=== PATIENT | female | born 1995 | race Caucasian/White ===

== ENCOUNTER 2019-05-07 08:29 | Emergency (ER) | payer OTHER ==
[~2019-05-07] VITALS: Ht 165.1 cm; Wt 65.8 kg
--- OUTSIDE RECORDS SUMMARY | ~2019-05-07 | XMS | Encounter Summary ---
Demographics + + + | Address | [address] | | | [place] [address] | + + + | Home Phone | | + + + | Preferred Language | Unknown | + + + | Marital Status | Unknown | + + + | Latter-Day Affiliation | Unknown | + + + | Race | Unknown | + + + | Ethnic Group | Unknown | + + + Author + + + | Author | [facility] | + + + | Organization | 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) | + + + Encounter Details +--------+ + + + + | Date | Type | Department | Care Team | Description | +--------+ + + + + | 06/09/ | Telephone | Pediatric | Sarwat Comer MD | New patient | | 2013 | | Neurology at | [address] | consultation (853.00 | | | | [address] | [place], [place] | (ICD-9-CM) - Other | | | | [facility] | [address] | and unspecified | | | | [address] | [phone] | intracranial | | | | Kylee Jamin Mailcode: | | hemorrhage following | | | | [facility] [address] | | injury, without | | | | [place], [place] | | mention of open | | | | [address] | | intracranial wound, | | | | [phone] | | unspecified state of | | | | | | consciousness;315.9 | | | | | | (ICD-9-CM) - | | | | | | Unspecified delay in | | | | | | development(315.9)) | +--------+ + + + + Social History + +-------+ +--------+------+ | Tobacco Use | Types | Packs/Day | Years | Date | | | | | Used | | + +-------+ +--------+------+ | Never Assessed | | | | | + +-------+ +--------+------+ + + + | Sex Assigned at | Date Recorded | | | | + + + | Not on file | | + + + + + + + | Job Start Date | Occupation | Industry | + + + + | Not on file | Not on file | Not on file | + + + + + + + + | Travel History | Travel Start | Travel End | + + + + + + | No recent travel history available. | + + documented as of this encounter Plan of Treatment Not on filedocumented as of this encounter Visit Diagnoses Not on filedocumented in this encounter"
--- OUTSIDE RECORDS SUMMARY | ~2019-05-07 | XMS | Encounter Summary ---
Demographics + + + | Address | [address] | | | [place] [address] | + + + | Home Phone | | + + + | Preferred Language | Unknown | + + + | Marital Status | Single | + + + | Protestant Affiliation | Unknown | + + + | Race | Unknown | + + + | Ethnic Group | Unknown | + + + Author + + + | Author | [facility] | | | and [place] | + + + | Organization | [facility] | | | and [place] | [...] Team Providers + +------+ + | Care Windows Desktop Support Name | Role | Phone | + +------+ + PCP | Unavailable | + +------+ + Encounter Details +--------+ + + + + | Date | Type | Department | Care Team | Description | +--------+ + + + + | 09/20/ | Hospital | [facility] | Brendan Olmstead, | | | 2016 | Encounter | [facility] | DMD [address] | | | | | [address] [facility] | [place] [address] | | | | | [place], [place] | [phone] | | | | | [address] | | | | | | [phone] | | | +--------+ + + + + Social [...] + + documented as of this encounter Progress Notes Conversion Transaction, Provider Unknown - 09/20/2016 4:24 PM PDTFormatting of this note m ight be different from the original. Nurse Progress Note by Lavinia Marcial RN at 09/20/161623 Author: Lavinia Marcial RN Service: (none) Author Type: Registered Nurse Filed: 09/20/16 9328 Date of Service: 09/20/161623 Status: Signed Linotype Worker: Lavinia Marcial RN (Registered Nurse) Discharge instructions given to mom and sister. No complaints of pain or discomfort from abigail espinal. Taught mom and sister how to take care of incisions, gave prescription medications to mother via discharge folder. Helped patient get dressed, changed brief, and Antonella CANT HOOKER help ed wheel patient out to the car. IV removed also. No extra questions left unanswered. Told m other if she had any questions to call Dr. Olmstead. onver camilla Transaction, Provider Unknown - 09/20/2016 1:04 PM PDT Nurse Progress Note by Marycarmen Grigsby RN at 09/20/16 1304 Author: Marycarmen Grigsby RN Service: (none) Author Type: Registered Nurse Filed: 09/20/16 1306 Date of Service: 09/20/16 1304 Status: Signed Linotype Worker: Marycarmen Grigsby RN (Registered Nurse) Pts last name is to be néstor Zhu. 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 Dr. Hagen in pre-op room and aware that HCG urine hasn 't been done @ mom's request. Marycarmen Grigsby RN 09/20/2016 1:06 PM onver camilla Transaction, Provider Unknown - 09/20/2016 12:46 PM PDT Nurse Progress Note by Marycarmen Grigsby RN at 09/20/16 1246 Author: Marycarmen Grigsby RN Service: (none) Author Type: Registered Nurse Filed: 09/20/16 1247 Date of Service: 09/20/16 1246 Status: Signed Linotype Worker: Marycarmen Grigsby RN (Registered Nurse) Pt unable to void in urine cup. Mom declining urine test. Marycarmen Grigsby RN 09/20/2016 12:47 PM docume nted in this encounter Plan of Treatment Not on filedocumented as of this encounter Visit Diagnoses Not on filedocumented in this encounter"
--- OUTSIDE RECORDS SUMMARY | ~2019-05-07 | XMS ---
Demographics + + + | Address | [address] | | | [place] [address] | + + + | Home Phone | | + + + | Preferred Language | Unknown | + + + | Marital Status | Never | + + + | Orthodoxy Affiliation | Unknown | + + + | Race | White | + + + | Ethnic Group | Not or | + + + Author + + + | Author | [facility] | + + + | Organization | [facility] | + + + | Address | [address] | | | [place] [address] | + + + | Phone | | + + + Care Team Providers + + + + | Care Technical Sales Manager Name | Role | Phone | + + + + | Joanne Gallardo PCP | | + + + + Unavailable | Unavailable | + + + + | Keke Simeon | PreferredProvider | | + + + + Allergies and Adverse Reactions + + + + | Name | Reaction | Notes | + + + + | NO KNOWN DRUG ALLERGIES | | | + + + + | No Known Food or | | - [employer]rees[employer] 08/23/2016 | | Environmental Allergies | | | + + + + Plan of Treatment Not available. Medications +--------+ | Active | +--------+ + + + + + + | Name | Start Date | Estimated | SIG | Comments | | | | Completion Date | | | + + + + + + | Loestrin 07/12 | 04/26/2014 | | take 1 pill for | | | (21) 1-20 | | | 21 days | | | mg-mcg oral | | | discard next 7 | | | tablet | | | pill and take | | | | | | another one | | | | | | pill for | | | | | | 21days, discard | | | | | | 7, take one | | | | | | pill for 21 | | | | | | days discard | | | | | | the next 7, t | | + + + + + + | divalproex 125 | 01/30/2015 | | TAKE THREE | | | mg oral | | | CAPSULES BY | | | capsule, | | | MOUTH IN THE | | | sprinkle | | | MORNING AND TWO | | | | | | AT NOON AND | | | | | | TWO AT BEDTIME | | + + + + + + | divalproex 125 | 03/01/2015 | | TAKE THREE | | | mg oral | | | CAPSULES BY | | | capsule, | | | MOUTH IN THE | | | sprinkle | | | MORNING AND TWO | | | | | | AT NOON AND | | | | | | TWO AT BEDTIME | | + + + + + + | divalproex 125 | 03/23/2015 | | TAKE THREE | | | mg oral | | | CAPSULES BY | | | capsule, | | | MOUTH IN THE | | | sprinkle | | | MORNING AND TWO | | | | | | AT NOON AND | | | | | | TWO AT BEDTIME | | + + + + + + | Lotrimin AF 1 % | 10/28/2016 | | apply to | | | topical cream | | | affected | | | | | | area(s) by | | | | | | topical route 3 | | | | | | times a day | | + + + + + + | divalproex 125 | 06/06/2017 | 07/06/2017 | TAKE THREE | | | mg oral | | | CAPSULES BY | | | capsule, | | | MOUTH OR | | | delayed rel | | | SPRINKLE ON | | | sprinkle | | | FOOD IN THE | | | | | | MORNING AND | | | | | | THREE CAPSULES | | | | | | AT 12 PM, AND | | | | | | TWO CAPSULES AT | | | | | | BEDTIME | | + + + + + + +---------+ | | +---------+ + + + + + + | Name | Start Date | Expiration Date | SIG | Comments | + + + + + + | Seasonique 0.15 | 04/26/2014 | 07/24/2014 | take 1 tablet | | | mg-30 mcg | | | by oral route | | | (84)/10 mcg (7) | | | once daily for | | | oral | | | 90 days | | | tablets,dose | | | | | | pack,3 month | | | | | + + + + + + | Perfit size | 04/25/2014 | 05/25/2014 | Use as | | | Medium Adult | | | directed. Disp | | | Pull-ups | | | 8/24hrs | | | | | | (240/mo) ICD-9: | | | | | | 344.00, | | | | | | 853.00, 315.9, | | | | | | 788.30, 787.60 | | + + + + + + | amoxicillin 400 | 07/15/2014 | 07/25/2014 | take 10 | | | mg/5 mL oral | | | milliliters by | | | suspension for | | | oral route 2 | | | reconstitution | | | times a day for | | | | | | 10 days | | + + + + + + | cefprozil 250 | 08/05/2014 | 08/15/2014 | take 10 | | | mg/5 mL oral | | | milliliters by | | | suspension for | | | oral route 2 | | | reconstitution | | | times a day for | | | | | | 10 days | | + + + + + + | divalproex 125 | 08/30/2014 | 12/28/2014 | Take 3 capsules | | | mg oral | | | (375 mg) po in | | | capsule, | | | am, 2 capsules | | | sprinkle | | | (375 mg) po | | | | | | midday, and 2 | | | | | | capsules (250 | | | | | | mg) po qhs. | | + + + + + + | divalproex 125 | 01/24/2015 | 07/23/2015 | TAKE THREE | | | mg oral | | | CAPSULES BY | | | capsule, | | | MOUTH IN THE | | | sprinkle | | | MORNING AND TWO | | | | | | AT NOON AND | | | | | | TWO AT BEDTIME | | | | | | for 30 days | | + + + + + + | Auralgan | 02/14/2015 | 02/21/2015 | fill external | | | antipyrine | | | ear canal with | | | 5.4%, | | | 2-4drops q 1-2 | | | benzocaine1.4 | | | hr prn pain | | + + + + + + | acetaminophen-c | 02/14/2015 | 02/21/2015 | take 1-2 tablet | | | odeine 300-30 | | | by oral route | | | mg oral tablet | | | every 4 to 6 | | | | | | hours for 7 | | | | | | days | | + + + + + + | Intuniv ER 1 mg | 04/11/2015 | 04/12/2015 | take 1 tablet | | | oral tablet | | | by oral route | | | extended | | | daily for 1 day | | | release 24 hr | | | | | + + + + + + | lorazepam 1 mg | 04/21/2015 | 04/28/2015 | take 1 tablet | | | oral tablet | | | (1 mg) by oral | | | | | | route as needed | | | | | | for | | | | | | aggressive | | | | | | behaviors. Not | | | | | | to exceed 3 | | | | | | tablets per | | | | | | day. | | + + + + + + | divalproex 125 | 05/31/2015 | 06/30/2015 | TAKE THREE | | | mg oral | | | CAPSULES BY | | | capsule, | | | MOUTH IN THE | | | sprinkle | | | MORNING AND TWO | | | | | | AT NOON AND | | | | | | TWO AT BEDTIME | | + + + + + + | guanfacine 1 mg | 06/02/2015 | 07/02/2015 | take 1 tablet | | | oral tablet | | | by oral route 2 | | | | | | times a day | | | | | | for 30 days | | + + + + + + | divalproex 125 | 06/06/2015 | 07/06/2015 | take 3 capsule | | | mg oral | | | by oral route | | | capsule, | | | or sprinkle on | | | sprinkle | | | food, in the | | | | | | am, 3 capsules | | | | | | at noon and 2 | | | | | | capsules at | | | | | | bedtime. | | + + + + + + | Risperdal 0.5 | 08/21/2015 | 09/20/2015 | take 1 tablet | | | mg oral tablet | | | by oral route | | | | | | QAM x 7 days | | | | | | then increase | | | | | | to bid. | | + + + + + + | trazodone 50 mg | 08/26/2015 | 09/25/2015 | take 1/2 tablet | | | oral tablet | | | (25 mg) by | | | | | | oral route at | | | | | | Bedtime once | | | | | | per day | | + + + + + + | First Quality | 08/28/2015 | 09/21/2016 | Use as | | | Diapers Size | | | directed. Disp | | | Large | | | 4/24hrs | | | | | | (120/mo) | | | | | | ICD-03/02: | | | | | | 344.00/G82.50, | | | | | | 788.30/32, | | | | | | 853.00/N/A | | + + + + + + | cetirizine 10 | 10/31/2015 | 2016 | chew 1 tablet | | | mg oral | | | (10 mg) by oral | | | tablet,chewable | | | route once | | | | | | daily for 30 | | | | | | days | | + + + + + + | fluticasone 50 | 10/31/2015 | 2016 | inhale 1 spray | | | mcg/actuation | | | by nasal route | | | nasal | | | daily | | | spray,suspensio | | | | | | n | | | | | + + + + + + | trazodone 50 mg | 10/31/2015 | 05/28/2016 | take 1/2 tablet | | | oral tablet | | | (25 mg) by | | | | | | oral route at | | | | | | Bedtime once | | | | | | per day | | + + + + + + | Zyrtec 10 mg | 10/28/2016 | 11/27/2016 | take 1 tablet | | | oral tablet | | | (10 mg) by oral | | | | | | route once | | | | | | daily for 30 | | | | | | days | | + + + + + + | Sudafed 12 Hour | 10/28/2016 | 11/27/2016 | take 1 tablet | | | 120 mg oral | | | (120 mg) by | | | tablet extended | | | oral route | | | release | | | every 12 hours | | | | | | for 30 days | | + + + + + + + + | Discontinued | + + + + + + + + | Name | Start Date | Discontinued | SIG | Comments | | | | Date | | | + + + + + + | guanfacine 2 mg | 07/14/2015 | 08/21/2015 | take 1 tablet | | | oral tablet | | | by oral route 2 | | | | | | times a day | | | | | | for 30 days | | + + + + + + Problem List + +--------+ + | Description | Status | Onset | + +--------+ + | Traumatic Brain Injury | Active | | + +--------+ + | Quadriplegia | Active | | + +--------+ + | Obesity | Active | | + +--------+ + | Developmental Delay | Active | | + +--------+ + | Contraception, Oral | Active | | | Prescription | | | + +--------+ + | Allergic rhinitis | Active | | + +--------+ + | Strabismus | Active | | + +--------+ + | 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 | 04/25/2014 | + +--------+ + | Eustachian tube dysfunction | Active | 02/15/2015 | + +--------+ + | Aggressive behavior | Active | 08/21/2015 | + +--------+ + | Weight loss | Active | 08/21/2015 | + +--------+ + | Sleep disorder, unspecified | Active | 08/21/2015 | + +--------+ + | Wrist pain, acute, right | Active | 08/21/2015 | + +--------+ + Vital Signs +-----+-----+-----+-----+-----+-----+-----+-----+-----+----+-----+-----+-----+-----+ | Ravi | Segun | BP- | BP- | HR( | RR( | Tem | WT | HT | HC | BMI | BSA | BMI | O2 | | e | e | Sys | Adri | bpm | rpm | p | | | | | | | Sat | | | | (mm | (mm | ) | ) | | | | | | | Per | (%) | | | | [Hg | [Hg | | | | | | | | | hoang | | | | | ] | ]) | | | | | | | | | til | | | | | | | | | | | | | | | e | | +-----+-----+-----+-----+-----+-----+-----+-----+-----+----+-----+-----+-----+-----+ | 5/2 | 4:2 | 116 | 64 | 109 | 28 | 99. | 131 | | | | | | 99 | | 3/2 | 4:0 | | mmH | | rpm | 5 F | | | | | | | % | | 017 | 0 | mmH | g | bpm | | | lbs | | | | | | | | | PM | g | | | | | | | | | | | | +-----+-----+-----+-----+-----+-----+-----+-----+-----+----+-----+-----+-----+-----+ | 58 | 2:4 | 104 | 70 | 90 | 22 | 98. | 131 | | | | | | | | /20 | 6:0 | | mmH | bpm | rpm | 5 F | | | | | | | | | 17 | 0 | mmH | g | | | | lbs | | | | | | | | | PM | g | | | | | | | | | | | | +-----+-----+-----+-----+-----+-----+-----+-----+-----+----+-----+-----+-----+-----+ | 4/1 | 2:4 | 108 | 66 | 90 | 30 | 98. | 133 | | | | | | 98 | | 2/2 | 0:0 | | mmH | bpm | rpm | 2 F | | | | | | | % | | 017 | 0 | mmH | g | | | | lbs | | | | | | | | | PM | g | | | | | | | | | | | | +-----+-----+-----+-----+-----+-----+-----+-----+-----+----+-----+-----+-----+-----+ | 3/3 | 9:1 | 106 | 62 | 87 | 20 | 99. | 133 | | | | | | 97 | | /20 | 6:0 | | mmH | bpm | rpm | 1 F | | | | | | | % | | 17 | 0 | mmH | g | | | | lbs | | | | | | | | | AM | g | | | | | | | | | | | | +-----+-----+-----+-----+-----+-----+-----+-----+-----+----+-----+-----+-----+-----+ | 5/1 | 8:4 | 110 | 60 | 91 | 24 | 98. | 134 | 62. | | 24. | 1.6 | 76 | 99 | | 0/2 | 4:0 | | mmH | bpm | rpm | 2 F | | 25 | | 312 | 339 | % | % | | 016 | 0 | mmH | g | | | | lbs | in | | 2 | | | | | | AM | g | | | | | | | | kg/ | m | | | | | | | | | | | | | | m | | | | +-----+-----+-----+-----+-----+-----+-----+-----+-----+----+-----+-----+-----+-----+ | 3/4 | 11: | | | 142 | 24 | 98. | 124 | | | | | | 99 | | /20 | 47: | | | | rpm | 6 F | | | | | | | % | | 16 | 00 | | | bpm | | | lbs | | | | | | | | | AM | | | | | | | | | | | | | +-----+-----+-----+-----+-----+-----+-----+-----+-----+----+-----+-----+-----+-----+ | 2/2 | 11: | 114 | 64 | 58 | 20 | 98 | 136 | 62. | | 24. | 1.6 | 78. | 98 | | 9/2 | 27: | | mmH | bpm | rpm | F | | 25 | | 675 | 46 | 6 % | % | | 016 | 00 | mmH | g | | | | lbs | in | | 1 | m | | | | | AM | g | | | | | | | | kg/ | | | | | | | | | | | | | | | m | | | | +-----+-----+-----+-----+-----+-----+-----+-----+-----+----+-----+-----+-----+-----+ | 10/ | 10: | 108 | 70 | 76 | 28 | 98. | 147 | | | | | | 99 | | 30/ | 12: | | mmH | bpm | rpm | 4 F | | | | | | | % | | 201 | 00 | mmH | g | | | | lbs | | | | | | | | 5 | AM | g | | | | | | | | | | | | +-----+-----+-----+-----+-----+-----+-----+-----+-----+----+-----+-----+-----+-----+ | 8/2 | 4:0 | 100 | 60 | 92 | 28 | 99. | 147 | | | | | | 100 | | 5/2 | 3:0 | | mmH | bpm | rpm | 9 F | | | | | | | % | | 015 | 0 | mmH | g | | | | lbs | | | | | | | | | PM | g | | | | | | | | | | | | +-----+-----+-----+-----+-----+-----+-----+-----+-----+----+-----+-----+-----+-----+ | 2/1 | 9:5 | 110 | 64 | 100 | 24 | 97. | 147 | | | | | | | | 3/2 | 0:0 | | mmH | | rpm | 5 F | | | | | | | | | 015 | 0 | mmH | g | bpm | | | lbs | | | | | | | | | AM | g | | | | | | | | | | | | +-----+-----+-----+-----+-----+-----+-----+-----+-----+----+-----+-----+-----+-----+ | 1/2 | 11: | 120 | 72 | 77 | 18 | 98. | 155 | | | | | | 100 | | 3/2 | 33: | | mmH | bpm | rpm | 7 F | | | | | | | % | | 015 | 00 | mmH | g | | | | lbs | | | | | | | | | AM | g | | | | | | | | | | | | +-----+-----+-----+-----+-----+-----+-----+-----+-----+----+-----+-----+-----+-----+ | 11/ | 10: | 130 | 76 | 90 | 18 | 98. | 154 | 61. | | 28. | 1.7 | 93. | | | 3/2 | 40: | | mmH | bpm | rpm | 4 F | | 5 | | 626 | 41 | 3 % | | | 014 | 00 | mmH | g | | | | lbs | in | | 5 | m | | | | | AM | g | | | | | | | | kg/ | | | | | | | | | | | | | | | m | | | | +-----+-----+-----+-----+-----+-----+-----+-----+-----+----+-----+-----+-----+-----+ Social History + + + + | Name | Description | Comments | + + + + | In twelvth grade | | | + + + + | Lives With | | 03/29/2014 - mom Amna | + + + + | Tobacco | Never smoker | | + + + + | Exercises Daily | | - [employer] 08/23/2016 | + + + + | In High School | | - [employer] 08/23/2016 | + + + + History of Procedures + + + + | Date Ordered | Description | Order Status | + + + + | 07/15/2014 12:00 AM | MEASURE BLOOD OXYGEN LEVEL | Reviewed | + + + + | 08/05/2014 10:45 AM | IAADIADOO INFLUENZA | Reviewed | + + + + | 08/05/2014 12:00 AM | MEASURE BLOOD OXYGEN LEVEL | Reviewed | + + + + | 08/05/2014 12:00 AM | ADENOVIRUS AG IF | Reviewed | + + + + | 08/05/2014 12:00 AM | INFLUENZA B AG IF | Reviewed | + + + + | 08/05/2014 12:00 AM | INFLUENZA A AG IF | Reviewed | + + + + | 08/05/2014 12:00 AM | RESPIRATORY SYNCYTIAL AG IF | Reviewed | + + + + | 08/05/2014 12:00 AM | PARAINFLUENZA AG IF | Reviewed | + + + + | 08/05/2014 12:00 AM | COMPREHEN METABOLIC PANEL | Reviewed | + + + + | 08/05/2014 12:00 AM | SUSIE-FOLEY CAPSID VCA | Reviewed | + + + + | 08/05/2014 12:00 AM | QUANTITATIVE ASSAY DRUG | Reviewed | + + + + | 08/05/2014 12:00 AM | BLOOD CULTURE FOR BACTERIA | Reviewed | + + + + | 08/05/2014 12:00 AM | RBC SED RATE NONAUTOMATED | Reviewed | + + + + | 08/05/2014 12:00 AM | HETEROPHILE ANTIBODY SCREEN | Reviewed | + + + + | 08/05/2014 12:00 AM | COMPLETE CBC W/AUTO DIFF | Reviewed | | | WBC | | + + + + | 02/14/2015 12:00 AM | MEASURE BLOOD OXYGEN LEVEL | Reviewed | + + + + | 02/14/2015 12:00 AM | SPECIAL SUPPLIES PHYS/QHP | Reviewed | + + + + | 03/27/2015 12:00 AM | INFLUENZA VAC 4 VALENT | Reviewed | | | PRSRV FREE 3 YRS PLUS IM | | + + + + | 03/27/2015 12:00 AM | X-RAY EXAM OF HIPS | Reviewed | + + + + | 04/21/2015 12:00 AM | QUANTITATIVE ASSAY DRUG | Reviewed | + + + + | 04/21/2015 12:00 AM | HEPATIC FUNCTION PANEL | Reviewed | + + + + | 04/21/2015 12:00 AM | COMPLETE CBC W/AUTO DIFF | Reviewed | | | WBC | | + + + + | 08/28/2015 12:00 AM | ASSAY OF LIPASE | Reviewed | + + + + | 08/28/2015 12:00 AM | RBC SED RATE NONAUTOMATED | Reviewed | + + + + | 08/28/2015 12:00 AM | COMPREHEN METABOLIC PANEL | Reviewed | + + + + | 08/28/2015 12:00 AM | C-REACTIVE PROTEIN | Reviewed | + + + + | 08/28/2015 12:00 AM | ASSAY THYROID STIM HORMONE | Reviewed | + + + + | 08/28/2015 12:00 AM | ASSAY OF FREE THYROXINE | Reviewed | + + + + | 08/28/2015 12:00 AM | ASSAY OF AMYLASE | Reviewed | + + + + | 08/28/2015 12:00 AM | COMPLETE CBC W/AUTO DIFF | Reviewed | | | WBC | | + + + + | 08/28/2015 12:00 AM | LACTATE (LD) (LDH) ENZYME | Reviewed | + + + + | 10/31/2015 12:00 AM | MEASURE BLOOD OXYGEN LEVEL | Reviewed | + + + + | 08/23/2016 12:00 AM | MEASURE BLOOD OXYGEN LEVEL | Reviewed | + + + + | 11/12/2016 12:00 AM | MEASURE BLOOD OXYGEN LEVEL | Reviewed | + + + + | 04/25/2014 12:00 AM | INFLUENZA VAC 4 VALENT | Reviewed | | | PRSRV FREE 3 YRS PLUS IM | | + + + + | 04/25/2014 12:00 AM | Ophthalmology Consultation | Reviewed | + + + + Results Summary + + + | Date and Description | Results | + + + | 08/05/2014 11:02 AM | RESULT #1 DAY 1 RESULT #1 no aerobic or | | | anaerobic growth as of 08/06/2014 06 | | | RESULT #2 DAY 2 RESULT #2 no aerobic or | | | anaerobic growth as of 08/07/2014 09 | | | RESULT #3 DAY 3 RESULT #3 no aerobic or | | | anaerobic growth as of 08/08/2014 07 | | | RESULT #4 08/11/2014 AM RESULT #4 no | | | growth after 6 days incubation | + + + | 08/05/2014 12:41 PM | Influenza Test Negative | + + + | 09/11/2014 10:17 AM | Hospital/ER/Urgent Care Diagnosis right | | | pinky finger injury/contusion/fx | | | Hospital/ER/Urgent Care Treatment F/U PCP | + + + | 04/21/2015 11:30 AM | PROTEIN 6.9 ALBUMIN 3.9 GLOBULIN 3.0 A/G | | | RATIO 1.3 BILIRUBIN, TOTAL 0.9 BILIRUBIN, | | | DIR. 0.2 BILIRUBIN, IND. 0.7 ALKALINE PHOS | | | 64 AST(SGOT) 15 ALT(SGPT) 18 VALPROIC | | | ACID 75 LAST DOSE 4 WBC 6.9 RBC 4.41 | | | HEMOGLOBIN 13.0 HEMATOCRIT 38.6 MCV 87.5 | | | RDW 13.0 MCH 29 MCHC 34 PLATELET COUNT 284 | | | NEUTROPHILS 56.6 LYMPHOCYTES 33.2 | | | MONOCYTES 8.9 EOSINOPHILS 0.8 BASOPHILS | | | 0.5 | + + + | 08/23/2015 6:11 PM | Hospital/ER/Urgent Care Diagnosis possible | | | medication reaction Hospital/ER/Urgent | | | Care Treatment stop risrobertdone, f/u pcp | + + + | 09/20/2016 11:35 AM | Hospital/ER/Urgent Care Diagnosis [facility] | | | dental multipled tooth extraction | + + + History Of Immunizations +-------+-------+-------+------+-------+-------+-------+-------+-------+-------+-----+ | Name | Date | Mfg | Mfg | Trade | Lot# | Route | Inj | Vis | Vis | CVX | | | Admin | Name | Code | Name | | | | Given | Pub | | +-------+-------+-------+------+-------+-------+-------+-------+-------+-------+-----+ | Flu | 04/25/ | sanof | PMC | Fluzo | [id number] | Intra | Right | 04/25/ | 02/08/ | 150 | | 3+ | 2013 | i | | ne > | AA | muscu | | 2013 | 2014 | | | years | | paste | | 3 | | lar | Delto | | | | | | | ur | | Years | | | id | | | | +-------+-------+-------+------+-------+-------+-------+-------+-------+-------+-----+ | Flu | 03/27/ | sanof | PMC | Fluzo | [id number] | Intra | Right | 03/27/ | | 150 | | 3+ | 2015 | i | | ne | AB | muscu | | 2014 | 015 | | | years | | paste | | Quadr | | lar | Delto | | | | | | | ur | | ivale | | | id | | | | | | | | | nt | | | | | | | +-------+-------+-------+------+-------+-------+-------+-------+-------+-------+-----+ History of Past Illness + + + + | Name | Date of Onset | Comments | + + + + | Traumatic Brain Injury | | age 5 | + + + + | Obesity | | | + + + + | Quadriplegia | | | + + + + | G-tube | 2001 | no longer in use, removed | + + + + | Developmental Delay | | | + + + + | Contraception, Oral | | | | Prescription | | | + + + + | Allergic rhinitis | | | + + + + | Strabismus | | | + + + + | Ptosis Of Eyelid | 04/25/2014 | | + + + + | Urinary Incontinence | | | + + + + | Encopresis | | | + + + + | Eustachian tube dysfunction | 02/15/2015 | | + + + + | Aggressive behavior | 08/21/2015 | | + + + + | Weight loss | 08/21/2015 | | + + + + | Sleep disorder, unspecified | 08/21/2015 | | + + + + | Wrist pain, acute, right | 08/21/2015 | | + + + + | Allergic Rhinitis (Hay | | - [employer] 08/23/2016 | | Fever) | | | + + + + | Vision Problem | | - [employer] 08/23/2016 | + + + + | Well Child Check | Apr 25 2014 10:30AM | | + + + + | Influenza 3YR & UP | Apr 25 2014 10:30AM | | + + + + | Traumatic Brain Injury | Apr 25 2014 10:30AM | | + + + + | Quadriplegia | Apr 25 2014 10:30AM | | + + + + | Developmental Delay | Apr 25 2014 10:30AM | | + + + + | Contraception, Oral | Apr 25 2014 10:30AM | | | Prescription | | | + + + + | Strabismus | Apr 25 2014 10:30AM | | + + + + | Overweight | Apr 25 2014 10:30AM | | + + + + | Ptosis Of Eyelid | Apr 25 2014 10:30AM | | + + + + | Behavioral Problems | Apr 25 2014 10:30AM | | + + + + | Bronchitis, Acute | Jul 15 2014 11:31AM | | + + + + | Bronchitis, Acute | Aug 05 2014 9:49AM | | + + + + | Sinusitis, Acute | Aug 05 2014 9:49AM | | + + + + | Viremia | Aug 05 2014 9:49AM | | + + + + | Right Eustachian Tube | Feb 14 2015 3:58PM | | | Dysfunction | | | + + + + | Influenza 3YR & UP | Mar 27 2015 9:49AM | | + + + + | Ptosis Of Eyelid | Mar 27 2015 9:49AM | | + + + + | Traumatic Brain Injury | Mar 27 2015 9:49AM | | + + + + | Quadriplegia | Mar 27 2015 9:49AM | | + + + + | Developmental Delay | Mar 27 2015 9:49AM | | + + + + | Strabismus | Mar 27 2015 9:49AM | | + + + + | Hip pain, unspecified | Mar 27 2015 9:49AM | | | laterality | | | + + + + | Strabismus | Mar 27 2015 9:49AM | | + + + + | Traumatic Brain Injury | Apr 21 2015 10:10AM | | + + + + | Quadriplegia | Apr 21 2015 10:10AM | | + + + + | Behavioral Problems | Apr 21 2015 10:10AM | | + + + + | Sleep disorder, unspecified | Aug 21 2015 11:21AM | | + + + + | Developmental Delay | Aug 21 2015 11:21AM | | + + + + | Traumatic Brain Injury | Aug 21 2015 11:21AM | | + + + + | Quadriplegia | Aug 21 2015 11:21AM | | + + + + | Aggressive behavior | Aug 21 2015 11:21AM | | + + + + | Weight loss | Aug 21 2015 11:21AM | | + + + + | Wrist pain, acute, right | Aug 21 2015 11:21AM | | + + + + | Developmental Delay | Aug 25 2015 8:33AM | | + + + + | Aggressive behavior | Aug 25 2015 8:33AM | | + + + + | Weight loss | Aug 25 2015 8:33AM | | + + + + | Traumatic Brain Injury | Aug 25 2015 8:33AM | | + + + + | Quadriplegia | Aug 25 2015 8:33AM | | + + + + | Tremor of unknown origin | Aug 25 2015 8:33AM | | + + + + | Aggressive behavior | Aug 28 2015 12:48PM | | + + + + | Sleep disorder, unspecified | Aug 28 2015 12:48PM | | + + + + | Dental Disorder | Oct 31 2015 8:44AM | | + + + + | Ptosis Of Eyelid | Oct 31 2015 8:44AM | | + + + + | Sleep disorder, unspecified | Oct 31 2015 8:44AM | | + + + + | Traumatic Brain Injury | Oct 31 2015 8:44AM | | + + + + | Quadriplegia | Oct 31 2015 8:44AM | | + + + + | Developmental Delay | Oct 31 2015 8:44AM | | + + + + | Allergic rhinitis | Oct 31 2015 8:44AM | | + + + + | Dental Disorder | Aug 23 2016 9:07AM | | + + + + | Ptosis Of Eyelid | Aug 23 2016 9:07AM | | + + + + | Quadriplegia | Aug 23 2016 9:07AM | | + + + + | Traumatic Brain Injury | Aug 23 2016 9:07AM | | + + + + | Developmental delay | Aug 23 2016 9:07AM | | + + + + | Sprain of left little | Oct 02 2016 2:34PM | | | finger, unspecified site of | | | | finger, initial encounter | | | + + + + | Tinea corporis | Oct 28 2016 2:45PM | | + + + + | Allergic rhinitis | Oct 28 2016 2:45PM | | + + + + | Fever | Nov 12 2016 4:19PM | | + + + + | Irritable | Nov 12 2016 4:19PM | | + + + + | Traumatic Brain injury | Nov 12 2016 4:19PM | | + + + + Payers + + + + + +---------+ + | Insurance | Company | Plan Name | Plan | Policy | Policy | Start Date | | Name | Name | | Number | Number | Group | | | | | | | | Number | | + + + + + +---------+ + | | [employer] | [employer] | [id number] | [id number] | | N/A | | | | | | | | | | | [facility] | | | | | | + + + + + +---------+ + | | Dmap | Dmap | | [id number] | | N/A | + + + + + +---------+ + | | [employer] | [employer] | [id number] | [id number] | | N/A | | | | | | | | | | | [employer] | | | | | | + + + + + +---------+ + History of Encounters + + + + | Visit Date | Visit Type | Provider | + + + + | 11/12/2016 | Same Day Appt | Joanne Cummingsdiamond [employer]IST APPRENTICE | + + + + | 10/28/2016 | Same Day Appt | Keke Simeon MD | + + + + | 10/02/2016 | Same Day Appt | Keena Estrada MD | + + + + | 08/23/2016 | Consult | Keke Simeon MD | + + + + | 10/31/2015 | Office Visit | Keke Simeon MD | + + + + | 08/25/2015 | Office Visit | Keke Simeon MD | + + + + | 08/21/2015 | Consult | | + + + + | 08/21/2015 | Consult | Keke Simeon MD | + + + + | 04/21/2015 | Consult | | + + + + | 04/21/2015 | Consult | Keke Simeon MD | + + + + | 03/27/2015 | Office Visit | | + + + + | 03/27/2015 | Office Visit | Keke Simeon MD | + + + + | 02/14/2015 | Day Appt | Keena Estrada MD | + + + + | 08/05/2014 | Acute Illness | | + + + + | 08/05/2014 | Acute Illness | | + + + + | 08/05/2014 | Acute Illness | Keke Simeon MD | + + + + | 07/15/2014 | Same Day Appt | Keke Simeon MD | + + + + | 04/25/2014 | New Patient | Keke Simeon MD | + + + +"
--- OUTSIDE RECORDS SUMMARY | ~2019-05-07 | XMS ---
Demographics + + + | Address | [address] | | | [place] [address] | + + + | Home Phone | | + + + | Preferred Language | Unknown | + + + | Marital Status | Never | + + + | Baptist Affiliation | Unknown | + + + | Race | White | + + + | Ethnic Group | Not or | + + + Author + + + | Author | [facility] | + + + | Organization | [facility] | + + + | Address | [address] | | | [place] [address] | + + + | Phone | | + + + Care Team Providers + + + + | Care Nylon Operator Name | Role | Phone | + [...] + + + | divalproex 125 | 11/10/2017 | | TAKE 3 CAPSULES | | | mg oral | | | BY MOUTH OR | | | capsule, | | | SPRINKLE ON | | | delayed rel | | | FOOD IN THE | | | sprinkle | | | MORNING AND 3 | | | | | | AT NOON AND 2 | | | | | | AT BEDTIME | | + + + [...] | | | Large | | | 24hrs | | | | | | (120/mo) | | | | | | ICD-10: | | | | | | 344.00/G82.50, [...] + + + | divalproex 125 | 08/05/2017 | 11/03/2017 | TAKE THREE | | | mg [...] | | | | | +-----+-----+-----+-----+-----+-----+-----+-----+-----+----+-----+-----+-----+-----+ | 5/8 | 2:4 | 104 | 70 | [...] Hospital/ER/Urgent | | | Care Treatment stop risnyasiae, f/u pcp | + + + | [...] AA | muscu | | 2013 | 2013 | | | years | | paste | | 3 | | lar | Delto | | | | | | | ur | | Years | | | id | | | | +-------+-------+-------+------+-------+-------+-------+-------+-------+-------+-----+ | Flu | 03/27/ | sanof | PMC | Fluzo | [id number] | Intra | Right | 03/27/ | | 150 | | 3+ | 2014 | i | | ne | AB | muscu | | 2014 | | | | years | | paste [...] + | | [employer] | [employer] | [id number] | [id number] | | N/A | | | | | | | | | | | Health/[place]p | | | | | | + + + + + +---------+ + | | Dmap | Dmap | | [id number] | | N/A | + + + + + +---------+ + | | [employer] | [employer] | [id number] | [id number] | | N/A | | | | | | | | | | | Health/[place] | | | | | | + + + + + +---------+ + History of Encounters + + + + | Visit Date | Visit Type | Provider | + + + + | 11/12/2016 | Day Appt | Joanne DUPREEP | + + + + | 10/28/2016 | Day Appt | Keke Simeon MD | + + + + | 10/02/2016 | Day Appt | Keena Estrada MD [...] + + + + | 07/15/2014 | Day Appt | Keke Simeon MD | + + + + | 04/25/2014 | New Patient | Keke Simeon MD | + + + +"
--- OUTSIDE RECORDS SUMMARY | ~2019-05-07 | XMS ---
Demographics + + + | Address | [address] | | | [place] [address] | + + + | Home Phone | | + + + | Preferred Language | Unknown | + + + | Marital Status | Never | + + + | Yarsanism Affiliation | Unknown | + + + | Race | White | + + + | Ethnic Group | Not or | + + + Author + + + | Author | [facility] | + + + | Organization | [facility] | + + + | Address | [address] | | | [place] [address] | + + + | Phone | | + + + Care Team Providers + + + + | Care Medical Claims Analyst Name | Role | Phone | + [...] + + + | divalproex 125 | 07/09/2017 | 08/08/2017 | TAKE THREE | | | mg [...] | | + +--------+ + | Allergic Rhinitis | Active | | + +--------+ + | Strabismus | Active | | + +--------+ + | 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 | 04/25/2014 | + +--------+ + | Eustachian tube dysfunction | Active | 02/15/2015 | + +--------+ + | Aggressive behavior | Active | 08/21/2015 | + +--------+ + | Weight Loss | Active | 08/21/2015 | + +--------+ [...] + + + + | Allergic Rhinitis | | | + + + + [...] | + + + + | Weight Loss | 08/21/2015 | | + + + [...] + | | [employer] | [employer] | [id number] | [id number] | | N/A | | | | | | | | | | | Health/[place]p | | | | | | + + + + + +---------+ + | | Dmap | Dmap | | [id number] | | N/A | + + + + + +---------+ + | | [employer] | [employer] | [id number] | [id number] | | N/A | | | | | | | | | | | Health/[place]p | | | | | | + + + + + +---------+ + History of Encounters + + + + | Visit Date | Visit Type | Provider | + + + + | 11/12/2016 | Same Day Appt | Joanne Cummingsdiamond ANIMAL CARE SPECIALIST | + + + + | 10/28/2016 [...]
--- OUTSIDE RECORDS SUMMARY | ~2019-05-07 | XMS ---
Demographics + + + | Address | [address] | | | [place] [address] | + + + | Home Phone | | + + + | Preferred Language | Unknown | + + + | Marital Status | Never | + + + | Mormon Affiliation | Unknown | + + + | Race | White | + + + | Ethnic Group | Not or | + + + Author + + + | Author | [facility] | + + + | Organization | [facility] | + + + | Address | [address] | | | [place] [address] | + + + | Phone | | + + + Care Team Providers + + + + | Care Director Of Anesthesia Services Name | Role | Phone | + + + + | Keke Simeon PCP | | + + + + [...] + + | lorazepam 1 mg | 12/25/2017 | 01/01/2018 | take 1 tablet | | | [...] | | e | | +-----+-----+-----+-----+-----+-----+-----+-----+-----+----+-----+-----+-----+-----+ | 7/5 | 4:1 | 92 | 60 | 84 | 16 | 97. | 129 | | | | | | 98 | | /20 | 7:0 | mmH | mmH | bpm | rpm | 3 F | | | | | | | % | | 18 | 0 | g | g | | | | lbs | | | | | | | | | PM | | | | | | | | | | | | | +-----+-----+-----+-----+-----+-----+-----+-----+-----+----+-----+-----+-----+-----+ | 5/2 | 4:2 [...] Comments | + + + + | Lives With | | 03/29/2014 - mom Anma | + + + + | Tobacco [...] + + | Traumatic Brain Injury | b 2015 11:21AM | | + + + + | Quadriplegia | b 2015 11:21AM | | + + + + | Aggressive behavior | Feb 2015 11:21AM | | + + + + | Weight loss | Feb 2015 11:21AM | | + + + [...] + + + | Aggressive behavior | Dec 25 2017 4:02PM | | + + + + | Traumatic Brain Injury | Dec 25 2017 4:02PM | | + + + + | Quadriplegia | Dec 25 2017 4:02PM | | + + + + | Developmental Delay | Dec 25 2017 4:02PM | | + + + + | Allergic Rhinitis | Dec 25 2017 4:02PM | | + + + + | Surveillance of | Dec 25 2017 4:02PM | | | intrauterine contraception | | | + + + + Payers [...] + | | [employer] | [employer] | [id number] | [id number] | | N/A | | | | | | | | | | | Health/[place] | | | | | | + + + + + +---------+ + | | Dmap | Dmap | | [id number] | | N/A | + + + + + +---------+ + | | [employer] | [employer] | [id number] | [id number] | | N/A | | | | | | | | | | | Health/[place] | | | | | | + + + + + +---------+ + History of Encounters + + + + | Visit Date | Visit Type | Provider | + + + + | 12/25/2017 | Consult | Keke Simeon MD | + + + + | 11/12/2016 | Same Day Appt | Joanne DUPREEP | + [...]
--- OUTSIDE RECORDS SUMMARY | ~2019-05-07 | XMS ---
Demographics + + + | Address | [address] | | | [place] [address] | + + + | Home Phone | | + + + | Preferred Language | Unknown | + + + | Marital Status | Never | + + + | Lutheran Affiliation | Unknown | + + + | Race | White | + + + | Ethnic Group | Not or | + + + Author + + + | Author | [facility] | + + + | Organization | [facility] | + + + | Address | [address] | | | [place] [address] | + + + | Phone | | + + + Care Team Providers + + + + | Care Scallop Dredger Name | Role | Phone | + [...] + | | [employer] | [employer] | [id number] | [id number] | | N/A | | | | | | | | | | | Health/[place]p | | | | | | + + + + + +---------+ + | | Dmap | Dmap | | [id number] | | N/A | + + + + + +---------+ + | | [employer] | [employer] | [id number] | [id number] | | N/A | | | | | | | | | | | Health/[place]p | | | | | | + + + + + +---------+ + History of Encounters + + + + | Visit Date | Visit Type | Provider | + + + + | 11/12/2016 | Same Day Appt | Joanne Cummingsdiamond TIMBER SKIDDER | + + + + | 10/28/2016 [...]
--- OUTSIDE RECORDS SUMMARY | ~2019-05-07 | XMS | Encounter Summary ---
Demographics + + + | Address | [address] | | | [place] [address] | + + + | Home Phone | | + + + | Preferred Language | Unknown | + + + | Marital Status | Single | + + + | Religion Affiliation | Unknown | + + + | Race | Unknown | + + + | Ethnic Group | Unknown | + + + Author + + + | Author | [facility] | | | and [place] | + + + | Organization | [facility] | | | and [place] [...] Team Providers + +------+ + | Care Telephone Order Dispatcher Name | Role | Phone | + +------+ + PCP | Unavailable | + +------+ + Encounter Details +--------+ + + + + | Date | Type | Department | Care Team | Description | +--------+ + + + + | 09/20/ | Hospital | [facility] | Conversion | | | 2017 | Encounter | [facility] | Transaction, | | | | | CLINIC [address] | Provider Unknown | | | | | [place], [place] | | | | | | [address] | (Fax) | | | | | [phone] | | | +--------+ + + + [...]
--- OUTSIDE RECORDS SUMMARY | ~2019-05-07 | XMS ---
Demographics + + + | Address | [address] | | | [place] [address] | + + + | Home Phone | | + + + | Preferred Language | Unknown | + + + | Marital Status | Never | + + + | Sikhism Affiliation | Unknown | + + + | Race | White | + + + | Ethnic Group | Not or | + + + Author + + + | Author | [facility] | + + + | Organization | [facility] | + + + | Address | [address] | | | [place] [address] | + + + | Phone | | + + + Care Team Providers + + + + | Care Vmware Systems Administrator Name | Role | Phone | + [...] + + + | divalproex 125 | 07/01/2016 | | TAKE THREE | | | mg oral | | | CAPSULES BY | | | capsule, | | | MOUTH OR | | | sprinkle | | | SPRINKLE ON | | | | | | FOOD IN THE | | | | | | MORNING AND | | | | | | THREE CAPSULES | | | | | | AT 12PM AND TWO | | | | | | CAPSULES AT | | | | | | BEDTIME | | + + + + + + | divalproex 125 | 10/10/2016 | | TAKE THREE | | | mg oral | | | CAPSULES BY | | | capsule, | | | MOUTH OR | | | sprinkle | | | SPRINKLE ON | | | | | | FOOD IN THE | [...] | | e | | +-----+-----+-----+-----+-----+-----+-----+-----+-----+----+-----+-----+-----+-----+ | 5/8 | 2:4 [...] | F | | 25 | | 68 | 5 | 6 % | % | | 016 | 00 | mmH | g | | | | lbs | in | | kg/ | m2 | | | | | AM | g | | | | | | | | m2 | | | | +-----+-----+-----+-----+-----+-----+-----+-----+-----+----+-----+-----+-----+-----+ | 10/ [...] + Results Summary + + + | Data and Description | Results | + + [...] Test Negative | + + + | 04/21/2015 11:30 [...] | | 0.5 | + + + History Of Immunizations [...] 2:45PM | | + + + + Payers [...] + | | [employer] | [employer] | [id number] | [id number] | | N/A | | | | | | | | | | | Health/[place] | | | | | | + + + + + +---------+ + | | Dmap | Dmap | | [id number] | | N/A | + + + + + +---------+ + | | [employer] | [employer] | [id number] | [id number] | | N/A | | | | | | | | | | | Health/[place]p | | | | | | + + + + + +---------+ + History of Encounters + + + + | Visit Date | Visit Type | Provider | + + + + | 10/28/2016 [...]
--- OUTSIDE RECORDS SUMMARY | ~2019-05-07 | XMS | Clinical Summary ---
Demographics + + + | Address | [address] | | | [place] [address] | + + + | Home Phone | | + + + | Preferred Language | Unknown | + + + | Marital Status | Single | + + + | Faith Affiliation | Unknown | + + + | Race | Unknown | + + + | Ethnic Group | Unknown | + + + Author + + + | Author | [facility] (Historical as of | | | 02-06-19) | + + + | Organization | [facility] (Historical as of | | | 02-06-19) | + + + | Address | Unknown | + + + | Phone | Unavailable | + + + Support + + + + + | Name | Relationship | Address | Phone | + + + + + | Amna Dong | ECON | [address] | | | | | [place] | | | | | [address] | | + + + + + Care Team Providers + +------+ + | Care Picking Supervisor Name | Role | Phone | + +------+ + | Keke Simeon MD | PP | | + +------+ + Allergies No Known Allergies Current Medications + + +---------+---------+------+------+-------+ | Prescription | Sig. | Disp. | Refills | Star | End | Statu | | | | | | t | Date | s | | | | | | Date | | | + + +---------+---------+------+------+-------+ | divalproex | Take 125 mg by mouth | | | | | Activ | | (DEPAKOTE) 125 MG EC | 3 (three) times | | | | | e | | tablet | daily. | | | | | | + + +---------+---------+------+------+-------+ | amoxicillin | Take 1 capsule by | 15 | 0 | 03/3 | | Activ | | (AMOXIL) 500 MG | mouth 3 (three) | capsule | | 1/20 | | e | | capsule | times daily. | | | 17 | | | + + +---------+---------+------+------+-------+ Active Problems Not on file Social History + +-------+ +--------+------+ | Tobacco Use | Types | Packs/Day | Years | Date | | | | | Used | | + +-------+ +--------+------+ | Never Smoker | | | | | + +-------+ +--------+------+ + + +---------+ + | Alcohol Use | Drinks/We | oz/Week | Comments | | | ek | | | + + +---------+ + | No | | | | + + +---------+ + + + + | Sex Assigned at | Date Recorded | | | | + + + | Not on file | | + + + Last Filed Vital Signs + + + + | Vital Sign | Reading | Time Taken | + + + + | Blood Pressure | 98/52 | 09/20/2016 3:50 PM PDT | + + + + | Pulse | 59 | 09/20/2016 3:17 PM PDT | + + + + | Temperature | 36.2 C (97.1 F) | 09/20/2016 3:15 PM PDT | + + + + | Respiratory Rate | 22 | 09/20/2016 3:17 PM PDT | + + + + | Oxygen Saturation | 98% | 09/20/2016 3:50 PM PDT | + + + + | Inhaled Oxygen | - | - | | Concentration | | | + + + + | Weight | 61.1 kg (134 lb 11.2 | 09/20/2016 12:40 PM PDT | | | oz) | | + + + + | Height | 165.1 cm (5' 5") | 09/20/2016 12:40 PM PDT | + + + + | Body Mass Index | 22.42 | 09/20/2016 12:40 PM PDT | + + + + Plan of Treatment Not on file Results Not on filefrom Last 3 Months Insurance + +--------+ +------+-------+ + | Payer | Benefi | Subscriber | Type | Phone | Address | | | t Plan | ID | | | | | | / | | | | | | | Group | | | | | + +--------+ +------+-------+ + | MEDICAID | [employer] | [id number] | | | [address] | | | N | | | | [place] | | | [place] | | | | [address] | | | REMOTE SENSING ENGINEER | | | | | + +--------+ +------+-------+ + + +--------+ +--------+ + + | Guarantor Name | Accoun | Relation to | Date | Phone | Billing Address | | | t Type | Patient | of | | | | | | | | | | + +--------+ +--------+ + + | YASMEEN SMART | Person | Self [birth year] | Home: | [address] | | | al/Shubham | | 1995 | [phone] | [place] [address] | | | cinthya | | | [phone] | | + +--------+ +--------+ + +
--- OUTSIDE RECORDS SUMMARY | ~2019-05-07 | XMS | Clinical Summary ---
Demographics + + + | Address | [address] | | | [place] [address] | + + + | Home Phone | | + + + | Preferred Language | Unknown | + + + | Marital Status | Single | + + + | Scientology Affiliation | Unknown | + + + | Race | Unknown | + + + | Ethnic Group | Unknown | + + + Author + + + | Author | [facility] [employer] (Historical as of | | | 02-06-19) | + + + | Organization | [facility] [employer] (Historical as of | | | 02-06-19) [...] [place] | | | | | [address] | | + + + + + Care Team Providers + +------+ + | Care Needle Valve Operator Name | Role | Phone | [...] +------+-------+ + | MEDICAID | [employer] | [id number] | | | [address] | | | N | | | | [place] | | | [place] | | | | [address] | | | JR. JAVA DEVELOPER | | | | | + +--------+ [...] | 1995 | [phone] | [place] [address] | | | cinthya | | | [address] | | + +--------+ +--------+ + +
--- OUTSIDE RECORDS SUMMARY | ~2019-05-07 | XMS ---
Demographics + + + | Address | [address] | | | [place] [address] | + + + | Home Phone | | + + + | Preferred Language | Unknown | + + + | Marital Status | Never | + + + | Druze Affiliation | Unknown | + + + | Race | White | + + + | Ethnic Group | Not or | + + + Author + + + | Author | [facility] | + + + | Organization | [facility] | + + + | Address | [address] | | | [place] [address] | + + + | Phone | | + + + Care Team Providers + + + + | Care Director Financial Services Name | Role | Phone | [...] + | | [employer] | [employer] | [id number] | [id number] | | N/A | | | | | | | | | | | Health/[place] | | | | | | + + + + + +---------+ + | | Dmap | Dmap | | [id number] | | N/A | + + + + + +---------+ + | | [employer] | [employer] | [id number] | [id number] | | N/A | | | | | | | | | | | Health/[place] | | | | | | + + + + + +---------+ + History of Encounters + + + + | Visit Date | Visit Type | Provider | + + + + | 11/12/2016 | Same Day Appt | Joanne Cummingsdiamond MIXER AND SCALER | + + + + | 10/28/2016 [...]
--- OUTSIDE RECORDS SUMMARY | ~2019-05-07 | XMS | Clinical Summary ---
Demographics + + + | Address | [address] | | | [place] [address] | + + + | Home Phone | | + + + | Preferred Language | Unknown | + + + | Marital Status | Single | + + + | Restoration Affiliation | Unknown | + + + | Race | Unknown | + + + | Ethnic Group | Unknown | + + + Author + + + | Author | [facility] | | | and [place] | + + + | Organization | [facility] | | | and [...] Team Providers + +------+ + | Care Tile And Marble Setter Name | Role | Phone | + [...]
--- OUTSIDE RECORDS SUMMARY | ~2019-05-07 | XMS ---
Demographics + + + | Address | [address] | | | [place] [address] | + + + | Home Phone | | + + + | Preferred Language | Unknown | + + + | Marital Status | Never | + + + | Synagogue Affiliation | Unknown | + + + | Race | White | + + + | Ethnic Group | Not or | + + + Author + + + | Author | [facility] | + + + | Organization | [facility] | + + + | Address | [address] | | | [place] [address] | + + + | Phone | | + + + Care Team Providers + + + + | Care Optical Manager Name | Role | Phone | [...] + + + | divalproex 125 | 02/02/2018 | | TAKE 3 CAPSULES | | [...] + | | [employer] | [employer] | [id number] | [id number] | | N/A | | | | | | | | | | | Health/[place]p | | | | | | + + + + + +---------+ + | | Dmap | Dmap | | [id number] | | N/A | + + + + + +---------+ + | | [employer] | [employer] | [id number] | [id number] | | N/A | | | | [...]
--- OUTSIDE RECORDS SUMMARY | ~2019-05-07 | XMS | Encounter Summary ---
Demographics + + + | Address | [address] | | | [place] [address] | + + + | Home Phone | | + + + | Preferred Language | Unknown | + + + | Marital Status | Unknown | + + + | Church Affiliation | Unknown | + + + | Race | Unknown | + + + | Ethnic Group | Unknown | + + + Author + + + | Author | [facility] | + + + | Organization | [facility] | + + + | Address | Unknown | + + + | Phone | Unavailable | + + + Care Team Providers + +------+ + | Care Arboreal Scientist Name | Role | Phone | + [...] (853.00 | | | | [address] | [place], [place] | (ICD-9-CM) - Other | | | | [facility] | [address] | and unspecified | | | | [address] | [phone] | intracranial | | | | Kylee Jamin Mailcode: | | hemorrhage following | | | | [facility] | | injury, without | | | | [place], [place] | | mention of open | | | | [address] | | intracranial wound, | | | | [phone] | | unspecified state of | | [...]
--- OUTSIDE RECORDS SUMMARY | ~2019-05-07 | XMS | Encounter Summary ---
Demographics + + + | Address | [address] | | | [place] [address] | + + + | Home Phone | | + + + | Preferred Language | Unknown | + + + | Marital Status | Unknown | + + + | Anabaptist Affiliation | Unknown | + + + | Race | Unknown | + + + | Ethnic Group | Unknown | + + + Author + + + | Author | [facility] | + + + | Organization | [facility] | + + + | Address | Unknown | + + + | Phone | Unavailable | + + + Care Team Providers + +------+ + | Care Laundry Supervisor Name | Role | Phone | [...] | | | | | | [address] | | | | | | [place] | | | | | | [place] [address] | | | | | | [phone] | | | | | | | [...]
--- OUTSIDE RECORDS SUMMARY | ~2019-05-07 | XMS ---
Demographics + + + | Address | [address] | | | [place] [address] | + + + | Home Phone | | + + + | Preferred Language | Unknown | + + + | Marital Status | Never | + + + | Mormonism Affiliation | Unknown | + + + | Race | White | + + + | Ethnic Group | Not or | + + + Author + + + | Author | [facility] | + + + | Organization | [facility] | + + + | Address | [address] | | | [place] [address] | + + + | Phone | | + + + Care Team Providers + + + + | Care Pyridine Operator Name | Role | Phone | [...] + + + | divalproex 125 | 12/12/2016 | | TAKE THREE | | | [...] | | e | | +-----+-----+-----+-----+-----+-----+-----+-----+-----+----+-----+-----+-----+-----+ | 5 | 4:2 | 116 | 64 | [...] | | 25 | | 312 | 3 | % | % | | 016 | 0 | mmH | g | | | | lbs | in | | 2 | m2 | | | | | [...] + | | [employer] | [employer] | [id number] | [id number] | | N/A | | | | | | | | | | | Health/[place] | | | | | | + + + + + +---------+ + | | Dmap | Dmap | | [id number] | | N/A | + + + + + +---------+ + | | [employer] | [employer] | [id number] | [id number] | | N/A | | | | | | | | | | | Health/[place] | | | | | | + + + + + +---------+ + History of Encounters + + + + | Visit Date | Visit Type | Provider | + + + + | 11/12/2016 | Day Appt | Joanne DARLING | + + + + | 10/28/2016 [...]
--- OUTSIDE RECORDS SUMMARY | ~2019-05-07 | XMS | Encounter Summary ---
Demographics + + + | Address | [address] | | | [place] [address] | + + + | Home Phone | | + + + | Preferred Language | Unknown | + + + | Marital Status | Unknown | + + + | Rastafarian Affiliation | Unknown | + + + | Race | Unknown | + + + | Ethnic Group | Unknown | + + + Author + + + | Author | [facility] | + + + | Organization | [facility] | + + + | Address | Unknown | + + + | Phone | Unavailable | + + + Care Team Providers + +------+ + | Care Events Manager Name | Role | Phone | [...] | | | | | | [address] | | | | | | [place] | | | | | | [place] [address] | | | | | | [phone] | | | | | | | [...]
--- OUTSIDE RECORDS SUMMARY | ~2019-05-07 | XMS | Clinical Summary ---
Demographics + + + | Address | [address] | | | [place] [address] | + + + | Home Phone | | + + + | Preferred Language | Unknown | + + + | Marital Status | Unknown | + + + | Congregational Affiliation | Unknown | + + + | Race | Unknown | + + + | Ethnic Group | Unknown | + + + Author + + + | Author | [facility] | + + + | Organization | [facility] | + + + | Address | Unknown | + + + | Phone | Unavailable | + + + Care Team Providers + +------+ + | Care Die Cutting Machine Operator Name | Role | Phone | + +------+ + | Keke Simeon MD | PCP | | + +------+ + Source Comments BENJAMIN is fully live on both [facility] and [facility] In[facility] Allergies Not on File Medications Not on [...] | + + Last Filed Vital Signs Not on file Plan of Treatment + + + + + | Health Maintenance | Due Date | Last Done | Comments | + + + + + | Influenza (Flu) | | | | | vaccination (#1) | 9 | | | + + + + + | Pneumococcal | Aged Out | | No longer eligible | | vaccination | | | based on patient's | | | | | age to complete this | | | | | topic | + + + + + Results Not on filefrom Last 3 Months"
--- OUTSIDE RECORDS SUMMARY | ~2019-05-07 | XMS | Encounter Summary ---
Demographics + + + | Address | [address] | | | [place] [address] | + + + | Home Phone | | + + + | Preferred Language | Unknown | + + + | Marital Status | Single | + + + | Congregation Affiliation | Unknown | + + + | Race | Unknown | + + + | Ethnic Group | Unknown | + + + Author + + + | Author | [facility] | | | and [place] | + + + | Organization | [facility] | | | and [place] [...] Team Providers + +------+ + | Care Aerographer Name | Role | Phone | + +------+ + PCP | Unavailable | + +------+ + Encounter Details +--------+ + + + + | Date | Type | Department | Care Team | Description | +--------+ + + + + | 09/20/ | Hospital | [facility] | Conversion | | | 2017 | Encounter | [facility] | Transaction, | | | | | [facility] [address] | Provider Unknown | | | | | [place], [place] | | | | | | [phone] | (Fax) | | | | | [phone] | | | +--------+ + + + [...]
--- OUTSIDE RECORDS SUMMARY | ~2019-05-07 | XMS ---
Demographics + + + | Address | [address] | | | [place] [address] | + + + | Home Phone | | + + + | Preferred Language | Unknown | + + + | Marital Status | Never | + + + | Mandaeism Affiliation | Unknown | + + + | Race | White | + + + | Ethnic Group | Not or | + + + Author + + + | Author | [facility] | + + + | Organization | [facility] | + + + | Address | [address] | | | [place] [address] | + + + | Phone | | + + + Care Team Providers + + + + | Care Electron Beam Operator Name | Role | Phone | [...] + + + | divalproex 125 | 11/12/2016 | 12/12/2016 | TAKE THREE | | | mg [...] | Intra | Right | 03/27/ | 8/7/2 | 150 | | 3+ | 2015 | i | | ne | AB | muscu | | 2015 | 015 | | | years | [...] + + + | Bronchitis, Acute | Feb 2014 9:49AM | | + + + + | Sinusitis, Acute | Aug 05 2014 9:49AM | | + + + + | Viremia | Aug 05 2014 9:49AM | | + + + + | Right Eustachian Tube | Feb 14 2015 3:58PM | | | Dysfunction | | | + + + + | Influenza 3YR & UP | Oct 2014 9:49AM | | + + + [...] + + + | Developmental Delay | Feb 2015 11:21AM | | + + + + | Traumatic Brain Injury | Feb 2015 11:21AM | | + + + + | Quadriplegia | Feb 29 2015 11:21AM | | + + + [...] + | | [employer] | [employer] | [id number] | [id number] | | N/A | | | | | | | | | | | Health/ohp | | | | | | + + + + + +---------+ + | | Dmap | Dmap | | [id number] | | N/A | + + + + + +---------+ + | | [employer] | [employer] | [id number] | [id number] | | N/A | | | | | | | | | | | Health/ohp | | | | | | + + + + + +---------+ + History of Encounters + + + + | Visit Date | Visit Type | Provider | + + + + | 11/12/2016 | Same Day Appt | Joanne DARLING | + [...]
--- OUTSIDE RECORDS SUMMARY | ~2019-05-07 | XMS ---
Demographics + + + | Address | [address] | | | [place] [address] | + + + | Home Phone | | + + + | Preferred Language | Unknown | + + + | Marital Status | Never | + + + | Uatsdin Affiliation | Unknown | + + + | Race | White | + + + | Ethnic Group | Not or | + + + Author + + + | Author | [facility] | + + + | Organization | [facility] | + + + | Address | [address] | | | [place] [address] | + + + | Phone | | + + + Care Team Providers + + + + | Care Public Health Technologist Name | Role | Phone | + [...] + | | [employer] | [employer] | [id number] | [id number] | | N/A | | | | | | | | | | | Health/ohp | | | | | | + + + + + +---------+ + | | Dmap | Dmap | | [id number] | | N/A | + + + + + +---------+ + | | [employer] | [employer] | [id number] | [id number] | | N/A | | | | | | | | | | | Health/ohp | | | | | | + + + + + +---------+ + History of Encounters + + + + | Visit Date | Visit Type | Provider | + + + + | 11/12/2016 | Same Day Appt | Joanne Cummingsdiamond ZIGZAG STITCHER | + + + + | 10/28/2016 [...]
--- OUTSIDE RECORDS SUMMARY | ~2019-05-07 | XMS | Clinical Summary ---
Demographics + + + | Address | [address] | | | [place] [address] | + + + | Home Phone | | + + + | Preferred Language | Unknown | + + + | Marital Status | Unknown | + + + | Sabianism Affiliation | Unknown | + + + | Race | Unknown | + + + | Ethnic Group | Unknown | + + + Author + + + | Author | [facility] | + + + | Organization | [facility] | + + + | Address | Unknown | + + + | Phone | Unavailable | + + + Care Team Providers + +------+ + | Care Animal Breeder Name | Role | Phone | + +------+ + | Keke Simeon MD | PCP | | + +------+ + Source Comments BENJAMIN is fully live on both [facility] Ambulatory and [facility] InPatient.[facility] Allergies Not on File Medications Not on [...]
--- OUTSIDE RECORDS SUMMARY | ~2019-05-07 | XMS | Clinical Summary ---
Demographics + + + | Address | [address] | | | [place] [address] | + + + | Home Phone | | + + + | Preferred Language | Unknown | + + + | Marital Status | Single | + + + | Sikh Affiliation | Unknown | + + + | Race | Unknown | + + + | Ethnic Group | Unknown | + + + Author + + + | Author | [facility] | | | and [place] | + + + | Organization | [facility] | | | and [...] Team Providers + +------+ + | Care Exhibit Display Representative Name | Role | Phone | + [...]
--- OUTSIDE RECORDS SUMMARY | ~2019-05-07 | XMS ---
Demographics + + + | Address | [address] | | | [place] [address] | + + + | Home Phone | | + + + | Preferred Language | Unknown | + + + | Marital Status | Never | + + + | Cheondoism Affiliation | Unknown | + + + | Race | White | + + + | Ethnic Group | Not or | + + + Author + + + | Author | [facility] | + + + | Organization | [facility] | + + + | Address | [address] | | | [place] [address] | + + + | Phone | | + + + Care Team Providers + + + + | Care Jewel Inserter Name | Role | Phone | + [...] + | | [employer] | E[employer]O | [id number] | [id number] | | N/A | | | | | | | | | | | Health/ohp | | | | | | + + + + + +---------+ + | | Dmap | Dmap | | [id number] | | N/A | + + + + + +---------+ + | | [employer] | E[employer]CCO | [id number] | [id number] | | N/A | | | | | | | | | | | Health/ohp | | | | | | + + + + + +---------+ + History of Encounters + + + + | Visit Date | Visit Type | Provider | + + + + | 11/12/2016 | Same Day Appt | Joanne Cummingsdiamond ANODIZE MACHINE OPERATOR | + + + + | 10/28/2016 [...]
--- OUTSIDE RECORDS SUMMARY | ~2019-05-07 | XMS | Encounter Summary ---
Demographics + + + | Address | [address] | | | [place] [address] | + + + | Home Phone | | + + + | Preferred Language | Unknown | + + + | Marital Status | Single | + + + | Yarsanism Affiliation | Unknown | + + + | Race | Unknown | + + + | Ethnic Group | Unknown | + + + Author + + + | Author | [facility] | | | and [place] | + + + | Organization | [facility] | | | and [place] [...] Team Providers + +------+ + | Care Customer Security Clerk Name | Role | Phone | + +------+ + PCP | Unavailable | + +------+ + Encounter Details +--------+ + + + + | Date | Type | Department | Care Team | Description | +--------+ + + + + | 09/20/ | Hospital | [facility] | Brendan Olmstead, | | | 2016 | Encounter | [facility] PAC[facility] | DMD [address] [facility] | | | | | [address] [facility] | [place] [address] | | | | | [place], [place] | [phone] | | | | | [address] | | | | | | [phone] | | | +--------+ + + + [...] (none) Author Type: Registered Nurse Filed: 09/20/16 4055 Date of Service: 09/20/161623 Status: Signed Supervisor Nut Processing: Lavinia Marcial RN (Registered Nurse) Discharge instructions given to mom and sister. No complaints of pain or discomfort from abigail espinal. Taught mom and sister how to take care of incisions, gave prescription medications to mother via discharge folder. Helped patient get dressed, changed brief, and Antonella MANAGED CARE SPECIALIST help ed wheel patient out to [...] Date of Service: 09/20/16 1304 Status: Signed Supervisor Nut Processing: Marycarmen Grigsby RN (Registered Nurse) Pts last name is to be néstor Zhu. Called CHANNEL LAYER, she stated the spelling will be changed [...] Date of Service: 09/20/16 1246 Status: Signed Supervisor Nut Processing: Marycarmen Grigsby RN (Registered Nurse) Pt unable to void in urine cup. Mom declining urine test. Marycarmen Grigsby RN 09/20/2016 12:47 PM docume nted in this encounter Plan of Treatment Not on filedocumented as of this encounter Visit Diagnoses Not on filedocumented in this encounter"
[~2019-05-07 08:29] MED LIST: AUGMENTIN600 MG/5 M PO; DEPAKENE250 MG; DEPAKENE250 MG PO; GUANFACINE HCL1 MG PO; LORAZEPAM1 MG PO; NORCO 5-325 TA1 EACH PO; RISPERDAL0.5 MG PO; TRAZODONE HCL50 MG PO
--- OUTSIDE RECORDS SUMMARY | 2019-05-07 08:32 | XMS ---
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 Simon VISIT COUNT (12 MO.) Meet Garzon TOTAL 1 NOTE: Visits indicate total known visits. ED/UCC VISIT TRACKING (12 MO.) 05/07/2019 08:[address] [facility] TYPE: Emergency COMPLAINT: - ABNORMAL LAB RESULTS INPATIENT VISIT TRACKING (12 MO.) No inpatient visits to display in this time frame [id number]
[2019-05-07] MEDS ORDERED: ARIPIPRAZOLE5 MG PO (08:44)
[2019-05-07] MEDS ORDERED: DIAZEPAM5 MG PO (08:44)
== END 2019-05-07 10:57 | disposition home or self-care (01) ==
LOC: ED 08:29
DX: R41.82 Altered mental status, unspecified (principal); Z79.899 Other long term (current) drug therapy
CPT/HCPCS: 70450; 80053; 82140; 82977; 85025; 99285-25

== ENCOUNTER 2019-05-08 08:00 | Emergency (ER) | payer OTHER ==
[~2019-05-08] VITALS: Ht 165.1 cm; Wt 65.8 kg
--- OUTSIDE RECORDS SUMMARY | ~2019-05-08 | XMS | Clinical Summary ---
Demographics + + + | Address | [address] | | | [place] [address] | + + + | Home Phone | | + + + | Preferred Language | Unknown | + + + | Marital Status | Single | + + + | Synagogue Affiliation | Unknown | + + + | Race | Unknown | + + + | Ethnic Group | Unknown | + + + Author + + + | Author | [facility] | | | and [place] | + + + | Organization | [facility] | | | and [place] | + + + | Address | Unknown | + + + | Phone | Unavailable | + + + Support + + +---------+ + | Name | Relationship | Address | Phone | + + +---------+ + | Amna Dong | ECON | Unknown | | + + +---------+ + Care Team Providers + +------+ + | Care Electrical Assembly Technician Name | Role | Phone | + +------+ + | Keke Simeon MD | PCP | | + +------+ + Allergies Not on File Medications Not on file Active Problems Not on file Social History + +-------+ +--------+------+ | Tobacco Use | Types | Packs/Day | Years | Date | | | | | Used | | + +-------+ +--------+------+ | Never Smoker | | | | | + +-------+ [...] recent travel history available. | + + Last Filed Vital Signs + + + + + | Vital Sign | Reading | Time Taken | Comments | + + + + + | Blood Pressure | 98/52 | 09/20/2016 4:26 PM | | | | | PDT | | + + + + + | Pulse | 59 | 09/20/2016 4:26 PM | | | | | PDT | | + + + + + | Temperature | 36.2 C (97.1 F) | 09/20/2016 4:26 PM | | | | | PDT | | + + + + + | Respiratory Rate | 22 | 09/20/2016 4:26 PM | | | | | PDT | | + + + + + | Oxygen Saturation | - | - | | + + + + + | Inhaled Oxygen | - | - | | | Concentration | | | | + + + + + | Weight | 61.1 kg (134 lb 11.2 | 09/20/2016 4:26 PM | | | | oz) | PDT | | + + + + + | Height | 165.1 cm (5' 5") | 09/20/2016 4:26 PM | | | | | PDT | | + + + + + | Body Mass Index | 22.42 | 09/20/2016 4:26 PM | | | | | PDT | | + + + + + Plan of Treatment + + + + + | Health Maintenance | Due Date | Last Done | Comments | + + + + + | Vaccine: HPV (1 - | | | | | Female 3-dose | 2 | | | | series) | | | | + + + + + | Vaccine: | | | | | Dtap/Tdap/Td (1 - | 6 | | | | Tdap) | | | | + + + + + | Cervical Cancer | | | | | Screening (Pap) | 8 | | | + + + + + | Vaccine: Influenza | | | | | (#1) | 9 | | | + + + + + Results Not on filefrom Last 3 Months
--- OUTSIDE RECORDS SUMMARY | ~2019-05-08 | XMS | Clinical Summary ---
Demographics + + + | Address | [address] | | | [place] [address] | + + + | Home Phone | | + + + | Preferred Language | Unknown | + + + | Marital Status | Single | + + + | Alevism Affiliation | Unknown | + + + | Race | Unknown | + + + | Ethnic Group | Unknown | + + + Author + + + | Author | [facility] | | | and [place] | + + + | Organization | [facility] | | | and [...] Team Providers + +------+ + | Care Parking Inspector Name | Role | Phone | + [...]
--- OUTSIDE RECORDS SUMMARY | ~2019-05-08 | XMS | Encounter Summary ---
Demographics + + + | Address | [address] | | | [place] [address] | + + + | Home Phone | | + + + | Preferred Language | Unknown | + + + | Marital Status | Single | + + + | Christian Affiliation | Unknown | + + + | Race | Unknown | + + + | Ethnic Group | Unknown | + + + Author + + + | Author | [facility] | | | and [place] | + + + | Organization | [facility] | | | and [place] | [...] Team Providers + +------+ + | Care Cylinder Inspector Name | Role | Phone | + +------+ + PCP | Unavailable | + +------+ + Encounter Details +--------+ + + + + | Date | Type | Department | Care Team | Description | +--------+ + + + + | 09/20/ | Hospital | [facility] | Conversion | | | 2017 | Encounter | [facility] | Transaction, | | | | | CLINIC [address] | Provider Unknown | | | | | [place], [place] | | | | | | [address] | (Fax) | | | | | [phone] | | | +--------+ + + + [...] + + documented as of this encounter Last Filed Vital Signs + + + + + | Vital Sign | Reading | Time Taken | Comments | + + + + + | Blood Pressure | 120/72 | 09/20/2016 11:19 AM | | | | | PDT | | + + + + + | Pulse | 82 | 09/20/2016 11:19 AM | | | | | PDT | | + + + + + | Temperature | - | - | | + + + + + | Respiratory Rate | - | - | | + + + + + | Oxygen Saturation | - | - | | + + + + + | Inhaled Oxygen | - | - | | | Concentration | | | | + + + + + | Weight | 61.4 kg (135 lb 5.8 | 09/20/2016 11:19 AM | | | | oz) | PDT | | + + + + + | Height | 165.1 cm (5' 5") | 09/20/2016 11:19 AM | | | | | PDT | | + + + + + | Body Mass Index | 22.53 | 09/20/2016 11:19 AM | | | | | PDT | | + + + + + documented in this encounter Plan of Treatment Not on filedocumented as of this encounter Visit Diagnoses Not on filedocumented in this encounter
--- OUTSIDE RECORDS SUMMARY | ~2019-05-08 | XMS | Encounter Summary ---
Demographics + + + | Address | [address] | | | [place] [address] | + + + | Home Phone | | + + + | Preferred Language | Unknown | + + + | Marital Status | Single | + + + | Adventist Affiliation | Unknown | + + + | Race | Unknown | + + + | Ethnic Group | Unknown | + + + Author + + + | Author | [facility] | | | and [place] | + + + | Organization | [facility] | | | and [place] [...] Team Providers + +------+ + | Care Hook And Eye Attacher Name | Role | Phone | + +------+ + PCP | Unavailable | + +------+ + Encounter Details +--------+ + + + + | Date | Type | Department | Care Team | Description | +--------+ + + + + | 09/20/ | Hospital | [facility] | Brendan Olmstead, | | | 2016 | Encounter | [facility] PAC[facility] | DMD [address] [facility] | | | | | [address] [facility] | [place] [address] | | | | | [place], [place] | [phone] | | | | | [address] | | | | | | [phone] | | | +--------+ + + + [...] (none) Author Type: Registered Nurse Filed: 09/20/16 2307 Date of Service: 09/20/161623 Status: Signed Press Cutter: Lavinia Marcial RN (Registered Nurse) Discharge instructions given to mom and sister. No complaints of pain or discomfort from abigail espinal. Taught mom and sister how to take care of incisions, gave prescription medications to mother via discharge folder. Helped patient get dressed, changed brief, and Antonella MEDICAL CODING SPECIALIST help ed wheel patient out to the [...] Date of Service: 09/20/16 1304 Status: Signed Press Cutter: Marycarmen Grigsby RN (Registered Nurse) Pts last name is to be néstor Zhu. Called IGNITER CAPPER, she stated the spelling will be changed [...] Date of Service: 09/20/16 1246 Status: Signed Press Cutter: Marycarmen Grigsby RN (Registered Nurse) Pt unable to void in urine cup. Mom declining urine test. Marycarmen Grigsby RN 09/20/2016 12:47 PM docume nted in this encounter Plan of Treatment Not on filedocumented as of this encounter Visit Diagnoses Not on filedocumented in this encounter"
--- OUTSIDE RECORDS SUMMARY | ~2019-05-08 | XMS | Encounter Summary ---
Demographics + + + | Address | [address] | | | [place] [address] | + + + | Home Phone | | + + + | Preferred Language | Unknown | + + + | Marital Status | Unknown | + + + | Catholic Affiliation | Unknown | + + + | Race | Unknown | + + + | Ethnic Group | Unknown | + + + Author + + + | Author | [facility] | + + + | Organization | [facility] | + + + | Address | Unknown | + + + | Phone | Unavailable | + + + Care Team Providers + +------+ + | Care Environmental Lead Name | Role | Phone | + +------+ + | Keke Simeon MD | PCP | | + +------+ + Encounter Details +--------+ + + + + | Date | Type | Department | Care Team | Description | +--------+ + + + + | 06/10/ | Abstract | [facility] | Keke Simeon | | | 2013 | | Department | MD [facility] | | | | | | [facility] | | | | | | [place] [address] | | | | | | [place] | | | | | | [place] [address] | | | | | | [phone] | | | | | | | | +--------+ + + + [...]
--- OUTSIDE RECORDS SUMMARY | ~2019-05-08 | XMS | Encounter Summary ---
Demographics + + + | Address | [address] | | | [place] [address] | + + + | Home Phone | | + + + | Preferred Language | Unknown | + + + | Marital Status | Unknown | + + + | Congregation Affiliation | Unknown | + + + | Race | Unknown | + + + | Ethnic Group | Unknown | + + + Author + + + | Author | [facility] | + + + | Organization | [facility] | + + + | Address | Unknown | + + + | Phone | Unavailable | + + + Care Team Providers + +------+ + | Care Lift Manager Name | Role | Phone | [...] (853.00 | | | | [address] | [place], [place] | (ICD-9-CM) - Other | | | | [facility] | [address] | and unspecified | | | | [address] | [phone] | intracranial | | | | Kylee Jamin Mailcode: | | hemorrhage following | | | | [facility] [address] | | injury, without | | | | [place], [place] | | mention of open | | | | [address] | | intracranial wound, | | | | [phone] | | unspecified state of | | [...]
--- OUTSIDE RECORDS SUMMARY | ~2019-05-08 | XMS | Encounter Summary ---
Demographics + + + | Address | [address] | | | [place] [address] | + + + | Home Phone | | + + + | Preferred Language | Unknown | + + + | Marital Status | Unknown | + + + | Confucianism Affiliation | Unknown | + + + | Race | Unknown | + + + | Ethnic Group | Unknown | + + + Author + + + | Author | [facility] | + + + | Organization | [facility] | + + + | Address | Unknown | + + + | Phone | Unavailable | + + + Care Team Providers + +------+ + | Care Rehabilitation Liaison Name | Role | Phone | + [...] (853.00 | | | | [place] | [place], [place] | (ICD-9-CM) - Other | | | | [facility] | [address] | and unspecified | | | | [address] | [phone] | intracranial | | | | Kylee Jamin Mailcode: | | hemorrhage following | | | | [facility] [address] | | injury, without | | | | [place], [place] | | mention of open | | | | [address] | | intracranial wound, | | | | [phone] | | unspecified state of | | [...]
--- OUTSIDE RECORDS SUMMARY | ~2019-05-08 | XMS | Encounter Summary ---
Demographics + + + | Address | [address] | | | [place] [address] | + + + | Home Phone | | + + + | Preferred Language | Unknown | + + + | Marital Status | Single | + + + | Baptist Affiliation | Unknown | + + + | Race | Unknown | + + + | Ethnic Group | Unknown | + + + Author + + + | Author | [facility] | | | and [place] | + + + | Organization | [facility] | | | and [place] [...] Team Providers + +------+ + | Care Polymer Scientist Name | Role | Phone | + +------+ + PCP | Unavailable | + +------+ + Encounter Details +--------+ + + + + | Date | Type | Department | Care Team | Description | +--------+ + + + + | 09/20/ | Hospital | [facility] | Conversion | | | 2017 | Encounter | CENTER [facility] | Transaction, | | | | | CLINIC [address] | Provider Unknown | | | | | [place], [place] | | | | | | [address] | (Fax) | | | | | [phone] | | | +--------+ + + + [...]
--- OUTSIDE RECORDS SUMMARY | ~2019-05-08 | XMS | Clinical Summary ---
Demographics + + + | Address | [address] | | | [place] [address] | + + + | Home Phone | | + + + | Preferred Language | Unknown | + + + | Marital Status | Single | + + + | Taoist Affiliation | Unknown | + + + | Race | Unknown | + + + | Ethnic Group | Unknown | + + + Author + + + | Author | [facility] | | | 02-06-19) | + + + | Organization | [facility] (Histor[facility] as of | | | 02-06-19) [...] [place] | | | | | [address] | | + + + + + Care Team Providers + +------+ + | Care Charge Histotechnologist Name | Role | Phone | + [...] +------+-------+ + | MEDICAID | [place] | [id number] | | | [address] | | | [place] | | | | [place] | | | [place] | | | | [address] | | | [employer]ER | | | | | + +--------+ [...] | 1995 | [phone] | [place] [address] | | | cinthya | | | [address] | | + +--------+ +--------+ + +
--- OUTSIDE RECORDS SUMMARY | ~2019-05-08 | XMS | Clinical Summary ---
Demographics + + + | Address | [address] | | | [place] [address] | + + + | Home Phone | | + + + | Preferred Language | Unknown | + + + | Marital Status | Unknown | + + + | Yazidi Affiliation | Unknown | + + + | Race | Unknown | + + + | Ethnic Group | Unknown | + + + Author + + + | Author | [facility] | + + + | Organization | [facility] | + + + | Address | Unknown | + + + | Phone | Unavailable | + + + Care Team Providers + +------+ + | Care Regulatory Auditor Name | Role | Phone | + +------+ + | Keke Simeon MD | PCP | | + +------+ + Source Comments BENJAMIN is fully live on both [facility] and [facility] InPatient.[facility] Allergies Not on File Medications Not on [...]
--- OUTSIDE RECORDS SUMMARY | ~2019-05-08 | XMS | Encounter Summary ---
Demographics + + + | Address | [address] | | | [place] [address] | + + + | Home Phone | | + + + | Preferred Language | Unknown | + + + | Marital Status | Unknown | + + + | Oriental Orthodox Affiliation | Unknown | + + + | Race | Unknown | + + + | Ethnic Group | Unknown | + + + Author + + + | Author | [facility] | + + + | Organization | [facility] | + + + | Address | Unknown | + + + | Phone | Unavailable | + + + Care Team Providers + +------+ + | Care Hogshead Roller Name | Role | Phone | + [...] | | | | | | [address] | | | | | | [place] | | | | | | [place] [address] | | | | | | [phone] | | | | | | | [...]
--- OUTSIDE RECORDS SUMMARY | ~2019-05-08 | XMS | Clinical Summary ---
Demographics + + + | Address | [address] | | | [place] [address] | + + + | Home Phone | | + + + | Preferred Language | Unknown | + + + | Marital Status | Unknown | + + + | Religion Affiliation | Unknown | + + + | Race | Unknown | + + + | Ethnic Group | Unknown | + + + Author + + + | Author | [facility] | + + + | Organization | [facility] | + + + | Address | Unknown | + + + | Phone | Unavailable | + + + Care Team Providers + +------+ + | Care Supervisor Type Bar And Segment Name | Role | Phone | + +------+ + | Keke Simeon MD | PCP | | + +------+ + Source Comments BENJAMIN is fully live on both [facility] Ambulatory and [facility] InPatient.[facility] Allergies Not on File Medications [...]
--- OUTSIDE RECORDS SUMMARY | ~2019-05-08 | XMS | Encounter Summary ---
Demographics + + + | Address | [address] | | | [place] [address] | + + + | Home Phone | | + + + | Preferred Language | Unknown | + + + | Marital Status | Single | + + + | Yazdanism Affiliation | Unknown | + + + | Race | Unknown | + + + | Ethnic Group | Unknown | + + + Author + + + | Author | [facility] | | | and [place] | + + + | Organization | [facility] | | | and [place] | [...] Team Providers + +------+ + | Care Stave Mill Hand Name | Role | Phone | + +------+ + PCP | Unavailable | + +------+ + Encounter Details +--------+ + + + + | Date | Type | Department | Care Team | Description | +--------+ + + + + | 09/20/ | Hospital | [facility] | Brendan Olmstead, | | | 2016 | Encounter | [facility] | DMD [address] | | | | | [address] [facility] | [place] [address] | | | | | [place], [place] | [phone] | | | | | [address] | | | | | | [phone] | | | +--------+ + + + [...] (none) Author Type: Registered Nurse Filed: 09/20/16 3382 Date of Service: 09/20/161623 Status: Signed Lock Technician: Lavinia Marcial RN (Registered Nurse) Discharge instructions given to mom and sister. No complaints of pain or discomfort from abigail espinal. Taught mom and sister how to take care of incisions, gave prescription medications to mother via discharge folder. Helped patient get dressed, changed brief, and Antonella CANDY DIPPER help ed wheel patient out to the [...] Date of Service: 09/20/16 1304 Status: Signed Lock Technician: Marycarmen Grigsby RN (Registered Nurse) Pts last name is to be néstor Zhu. Called ACCOUNTS PAYABLE MANAGER, she stated the spelling will be changed [...] Date of Service: 09/20/16 1246 Status: Signed Lock Technician: Marycarmen Grigsby RN (Registered Nurse) Pt unable to void in urine cup. Mom declining urine test. Marycarmen Grigsby RN 09/20/2016 12:47 PM docume nted in this encounter Plan of Treatment Not on filedocumented as of this encounter Visit Diagnoses Not on filedocumented in this encounter"
--- OUTSIDE RECORDS SUMMARY | ~2019-05-08 | XMS | Clinical Summary ---
Demographics + + + | Address | [address] | | | [place] [address] | + + + | Home Phone | | + + + | Preferred Language | Unknown | + + + | Marital Status | Single | + + + | Religion Affiliation | Unknown | + + + | Race | Unknown | + + + | Ethnic Group | Unknown | + + + Author + + + | Author | [facility] (Historical as of | | | 02-06-19) | + + + | Organization | [facility] (Historical as of | | | 02-06-19) [...] [place] | | | | | [address] | | + + + + + Care Team Providers + +------+ + | Care Warehouse Analyst Name | Role | Phone | [...] +------+-------+ + | MEDICAID | [place] | [id number] | | | [address] | | | [address] | | | | [place] | | | [place] | | | | [phone] | | | [address] JUSTICE | | | | | + +--------+ [...] | 1995 | [phone] | [place] [address] | | | cinthya | | | [phone] | | + +--------+ +--------+ + +
[~2019-05-08 08:00] MED LIST changes: +ARIPIPRAZOLE5 MG PO; +DIAZEPAM5 MG PO
--- OUTSIDE RECORDS SUMMARY | 2019-05-08 08:02 | XMS ---
PreManage Notification: CANDIDA WILLIS Security Ferryboat Operator Helper Events No recent Security Events currently on file CRITERIA MET - HIMA - - 2 Visits in 30 Days CARE PROVIDERS Haris Pacheco Treatment Current [place] PHONE: Unknown Dain [place] Other Current Orthopedic Surgery \T\ Fracture Clinic PHONE: Unknown Wolf has no Care Guidelines for this patient. Simon VISIT COUNT (12 MO.) [address] [place] [address] TOTAL 2 NOTE: Visits indicate total known visits. ED/UCC VISIT TRACKING (12 MO.) 05/08/2019 08:00 [facility] [place] TYPE: Emergency COMPLAINT: - ASPIRATING 05/07/2019 08:29 [facility] TYPE: Emergency COMPLAINT: - ABNORMAL LAB RESULTS INPATIENT VISIT TRACKING (12 MO.) No inpatient visits to display in this time frame [id number]
== END 2019-05-08 09:54 | disposition short-term general hospital (02) ==
LOC: ED 08:00
DX: G24.9 Dystonia, unspecified (principal); G11.9 Hereditary ataxia, unspecified; Z79.899 Other long term (current) drug therapy
CPT/HCPCS: 71045; 99285-25

== ENCOUNTER 2020-09-19 17:52 | Emergency (ER) | payer OTHER ==
[~2020-09-19] VITALS: Ht 165.1 cm; Wt 65.8 kg
--- OUTSIDE RECORDS SUMMARY | 2020-09-19 17:54 | XMS ---
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 CARE PROVIDERS SANDRO RAMIREZ Internal Medicine: Pulmonary Disease 05/10/2019-Current PHONE: Unknown Wolf has no Care Guidelines for this patient. Care History Medical/Surgical 05/10/2019 [facility] - Patient is currently established with [facility]. If patient is seen in the ED during business hours. Please contact CHWs at [facility]. Care Recommendation: This patient has had 5 or more Emergency Department visits in the last 12 months.\T\nbsp; Patient requires education on the scope and purpose of the ED as an acute care provider not a Primary Care Provider and should not be utilized for chronic conditions.\T\nbsp; These are guidelines and the provider should exercise clinical judgment when providing care. E.D. VISIT COUNT (12 MO.) [address] [place] [address] TOTAL 1 NOTE: Visits indicate total known visits. ED/UCC VISIT TRACKING (12 MO.) 09/19/2020 17:52 [facility] [place] TYPE: Emergency COMPLAINT: - GLF INPATIENT VISIT TRACKING (12 MO.) No inpatient visits to display in this time frame [email or web address]
[2020-09-19] MEDS ORDERED: FLUOXETINE HCL40 MG PO (17:59)
[2020-09-19] MEDS ORDERED: LAMOTRIGINE25 MG PO (17:59)
== END 2020-09-19 19:06 | disposition home or self-care (01) ==
LOC: ED 17:52
DX: S82.441A Displaced spiral fracture of shaft of right fibula, initial encounter for closed fracture (principal); W01.198A Fall on same level from slipping, tripping and stumbling with subsequent striking against other object, initial encounter
CPT/HCPCS: 29515; 73522; 73610; 99283-25

== ENCOUNTER 2020-12-14 08:40 | Emergency (ER) | payer OTHER ==
[~2020-12-14] VITALS: Ht 165.1 cm; Wt 77.6 kg
[~2020-12-14 08:40] MED LIST changes: +FLUOXETINE HCL40 MG PO; +HYDROCODON-ACE1 EA10 PO; +LAMOTRIGINE25 MG PO
[2020-12-14] MEDS ORDERED: TRAZODONE HCL50 MG PO (11:36)
[2020-12-14] MEDS ORDERED: DOXYCYCLINE MO100 M1 PO (11:36)
[2020-12-14] MEDS ORDERED: FLUOXETINE HCL20 MG PO (11:37)
== END 2020-12-14 11:26 | disposition home or self-care (01) ==
LOC: ED 08:40
DX: S91.301A Unspecified open wound, right foot, initial encounter (principal); X58.XXXA Exposure to other specified factors, initial encounter; Z79.899 Other long term (current) drug therapy
CPT/HCPCS: 73650; 85025; 99283-25

== ENCOUNTER 2021-06-29 10:55 | Emergency (ER) | payer OTHER ==
[~2021-06-29] VITALS: Ht 165.1 cm; Wt 95.2 kg
[~2021-06-29 10:55] MED LIST changes: +DOXYCYCLINE MO100 M1 PO; +FLUOXETINE HCL20 MG PO
--- OUTSIDE RECORDS SUMMARY | 2021-06-29 10:58 | XMS ---
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 Care History Medical/Surgical 05/10/2019 [facility] - Patient is currently established with [facility]. If patient is seen in the ED during business hours. Please contact CHWs at [facility]. Care Recommendation: This patient has had 5 [...] providing care. E.D. VISIT COUNT (12 MO.) 3 [facility] TOTAL 3 NOTE: Visits indicate total known visits. ED/UCC VISIT TRACKING (12 MO.) 06/29/2021 10:55 [facility] TYPE: Emergency COMPLAINT: - ABD PAIN 12/14/2020 08:41 [facility] TYPE: Emergency COMPLAINT: - WOUND CARE DIAGNOSES: - Exposure to other specified factors, initial encounter - Other mcfp (current) drug therapy - Unspecified open wound, right foot, initial encounter 09/19/2020 17:[address] [facility] [place] TYPE: Emergency COMPLAINT: - GLF DIAGNOSES: - Fall on same level from slipping, tripping and stumbling with subsequent striking against other object, initial encounter - Displaced spiral fracture of shaft of right fibula, initial encounter for closed fracture INPATIENT VISIT TRACKING (12 MO.) No inpatient visits to display in this time frame [email or web address]
== END 2021-06-29 18:24 | disposition home or self-care (01) ==
LOC: ED 10:55
DX: K59.00 Constipation, unspecified (principal); Z79.899 Other long term (current) drug therapy
CPT/HCPCS: 99283

== ENCOUNTER 2021-07-13 05:48 | Day surgery (SDC) | payer OTHER ==
[~2021-07-13] VITALS: Ht 165.1 cm; Wt 95.9 kg
[~2021-07-13 05:48] MED LIST changes: +LAMICTAL200 MG PO; +PROZAC20 MG PO; +TYLENOL325 MG PO
--- NOTE | 2021-07-13 06:21 | NUR ---
MOM WITH PT ANSWERS FOR PT. STATES SHE UNDERSTANDS BUT DOESNT TALK. ONLY SCREAMS.
--- NOTE | 2021-07-13 08:38 | NUR ---
07/13/21 0838 Peggy Moore 0806 PATIENT ARRIVES TO PACU UNRESPONSIVE TO PAIN. ORAL AIRWAY IN PLACE. ALSO REQUIRES CHIN LIFT FROM RN. RESP EVEN AND UNLABORED, MASK AT 10 LITERS.
--- NOTE | 2021-07-13 10:58 | NUR ---
MOM HAS BEEN IN ATTENDANCE AND CHANGED AND DRESSED PT. STATES SHE FEELS COMFORTABLE WITH TAKING PT. STILL A LITTLE SLOW WITH MEDICATION ON BOARD.
== END 2021-07-13 10:30 | disposition home or self-care (01) ==
LOC: DS 05:48 → OPS 05:48 → DS 06:45 → OPS 10:30
PROVIDERS: ATTEND Dentist General Practice
PROC: 0CQWXZ1 Repair of Upper Tooth, Multiple, External Approach (ICD-10-PCS; 2021-07-13)
PROC: 0CQXXZ1 Repair of Lower Tooth, Multiple, External Approach (ICD-10-PCS; principal; 2021-07-13 06:45)
DX: K02.9 Dental caries, unspecified (principal); K03.6 Deposits [accretions] on teeth; K06.8 Other specified disorders of gingiva and edentulous alveolar ridge; S06.9X9S Unspecified intracranial injury with loss of consciousness of unspecified duration, sequela; R62.50 Unspecified lack of expected normal physiological development in childhood; R47.01 Aphasia; R10.84 Generalized abdominal pain; E03.9 Hypothyroidism, unspecified
CPT/HCPCS: 00170; 70320; 80048; 84703; 85025; J0330; J0461; J1100; J1885; J2250; J2405; J2704; J2765; J3010; J7121

== ENCOUNTER 2022-02-13 16:18 | Inpatient (IN) | payer OTHER ==
[~2022-02-13] VITALS: Ht 165.1 cm; Wt 101.4 kg
--- NOTE | ~2022-02-13 | EKG ---
[facility] [address] [place], [place] [address] Draft EK completed, results pending confirmation PATIENT NAME: CANDIDA WILLIS Electrocardiogram DATE OF : [birth year] PHYSICIAN: PRELIMINARY REPORT #: [id number] REPORT IS CONFIDENTIAL AND NOT TO BE RELEASED WITHOUT AUTHORIZATION
[~2022-02-13 16:18] MED LIST changes: +LAMICTAL100 MG PO; -LAMOTRIGINE25 MG PO
--- OUTSIDE RECORDS SUMMARY | 2022-02-13 16:20 | XMS ---
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 Care History Medical/Surgical 07/03/2021 [facility] Patient is nonverbal, mother spoke to Dr. Maradiaga on 07/01/2021 advising she took pt to ER for constipation. No follow up scheduled at this time. 05/10/2019 [facility] - Patient is currently established with [facility]. If patient is seen in the ED during business hours. Please contact CHWs at [facility]. Care Recommendation: This patient has had 5 or more Emergency Department visits in the last 12 months.\T\nbsp; Patient requires education on the scope and purpose of the ED as an acute care provider not a Primary Care Provider and should not be utilized for chronic conditions.\T\nbsp; These are guidelines and the provider should exercise clinical judgment when providing care. EChay VISIT COUNT (12 MO.) 2 [facility] TOTAL 2 NOTE: Visits indicate total known visits. 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
[2022-02-13] MEDS ORDERED: ARIPIPRAZOLE10 MG PO ×2 (17:46)
[2022-02-13] MEDS ORDERED: LAMICTAL100 MG PO (17:47)
--- NOTE | 2022-02-13 20:00 | NUR ---
Patient sitting at side of bed. Denies pain. Denies needs. Call light at side.
--- NOTE | 2022-02-13 22:55 | NUR ---
[facility]EL[facility]IR, BROUGHT TO FLOOR BY RN JANET. pt NONVERBAL, MOTHER REMAINS AT BEDSIDE. BED ALARM ON FOR SAFETY. PRIMARY RN IVANIA IN ROOM WITH pt AND DISCUSSING POC WITH pt's MOTHER.
--- NOTE | 2022-02-13 23:28 | NUR ---
Dr. Cortez called for this patient regarding medication for agitation. Dr. Cortez deferred medications to hospitalist. Ordered hospitalist consult. Dr. Cortez made aware that NG tube was pulled by patient. Dr. Cortez ok'd leaving NG tube out. Hospitalist in patient room at this time seeing patient and patient's mother.
--- NOTE | 2022-02-13 23:50 | NUR ---
Patient recieved on floor. Nonverbal. Unable to redirect. Accompanied by mother. Multiple attempts to get out of bed. Attending physician made aware. Mother remains at bedside.
--- NOTE | 2022-02-14 | NUR ---
IN AND OUT OF PT ROOM [id number] TO ASSIST RN AND PTs MOTHER TO REDIRECT PT TO STAY IN BED, PT ATEMPTING TO CRAWL OOB, MOTHER AT BEDSIDE, TRYING TO KEEP PT COMFORTABLE, BED ALARM SET
--- NOTE | 2022-02-14 00:50 | NUR ---
WITH PTs MOTHER, CHANGED ATTENDS, PT STILL SEEMS RESTLESS AT THIS TIME TIME, RN AWARE
--- NOTE | 2022-02-14 01:22 | NUR ---
This nurse called Dr. Castro again about patient's restlessness/agitation. Ordered EKG to view QTC interval. If QTC less than 450, OK to give one time IM 5mg zyprexa. After EKG was done, patient found to have QTC less than 450. Zyprexa ordered.
--- NOTE | 2022-02-14 02:23 | NUR ---
Patient sleeping in bed. Bed alarm in place. Mother sleeping at bedside.
--- NOTE | 2022-02-14 03:37 | NUR ---
ROUNDED ON pt, pt RESTING IN BED WITH EYES CLOSED. ON RA, RR EVEN AND UNLABORED. NO DISTRESS NOTED, BED ALARM ON FOR SAFETY. CALL LIGHT IN REACH. MOTHER ALSO REMAINS IN ROOM, pt ROOM IN VIEW OF RN STATION. WILL CONTINUE TO MONITOR.
--- NOTE | 2022-02-14 04:13 | NUR ---
Patient pulled IV acess. IV catheter intact. Patient's arm cleaned of blood. Patient was able to return to sleep afterwards.
--- NOTE | 2022-02-14 04:50 | NUR ---
IN TO SIT WITH PT NEEDED, PT WAKING UP BRIEFLY AT TIMES, VS TAKEN, PT IS INCONT OF URINE, LAB IN TO DRAW BLOOD, ASSISTING LAB WITH PT POSITIONING, PT TUCKED BACK IN, BED ALARM IN PLACE, WILL CONTINUE TO MONITOR PT NEEDED
--- NOTE | 2022-02-14 05:04 | NUR ---
pt PULLED PREVIOUS IV, FOUND BY PRIMARY RN IVANIA. CLINICAL ASSISTANT PROFESSOR TROY IN ROOM, NEW IV STARTED, 22G IN RIGHT FOREARM. PRIMARY RN IVANIA IN ROOM AND RESTARTING IV FLUIDS.
--- NOTE | 2022-02-14 05:13 | NUR ---
IV restarted. Patient has remained asleep since last dose of PRN zyprexia. Mother remains sleeping at bedside. Bed alarm is in place. Patient does not call.
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
--- NOTE | 2022-02-14 09:06 | NUR ---
MORNING ASSESSMENT COMPLETE. PT LYING AWAKE IN BED, ALARM ON. MOTHER AT BEDISDE. PT PULLED IV, ATTEMPTS TO RESTART IV BY RICHIE PENALOZA X2 AND KATTY PENALOZA X2 UNSUCESSFUL. ULTRASOUND IV PLACED BY JOSE GUADALUPE PENALOZA. BOWEL SOUNDS HYPOACTIVE. APPEARS NON TENDER TO THE TOUCH, NO WINCING OR FLINCHING ON PALPATION. MOTHER EDUCATED ON NPO STATUS AND SBO. NO FURTHER QUESTIONS AT THIS TIME. BED ALARM ON.
--- NOTE | 2022-02-14 10:36 | NUR ---
PT TRANSFERED FROM BED TO CHAIR WITH 2 PERSON ASSIST. BRIEF CHANGED. CHAIR ALARM ON. MOTHER AT BEDSIDE. CALL LIGHT IN REACH.
--- NOTE | 2022-02-14 11:20 | NUR ---
Spoke with pt's mom as pt is nonverbal. Pt is restless and moving in chair constantly. Pt attempting to get out of chair. Mom states concern as pt can ususally stand, but has been falling to the floor from a stand ing position. Mom states they live in a house with a ramp, there are no issues to get Yasmeen in and out of the home. They have 80 hrs of cg service through the [facility] q 2 weeks. Mom is also familiar with [employer]. Pt has a wc, shower chair, and ramp. Mom also states concern as her spouse is awaiting a transplant. I asked what other needs we could help with. Mom denies needs, states she is stressed, but ok. She states they have multiple medical bills. She is aware of [employer] assistance in town and also financial assistance through the hospital. Her only request is a stuff toy for Yasmeen to hold. She states this at times will calm. [place] was able to obtain a soft toy for Yasmeen from the gift shop. Unfortunatly, this did not help with restlessness. Mom then requested they have a wc and she would take her for a ride. Mom denies any other requests or needs.
--- NOTE | 2022-02-14 12:15 | NUR ---
PT SITTING IN CHAIR, AWAKENS EASILY. PARENTS AT BESIDE. DENY NEEDS AT THIS TIME. CALL LIGHT IN REACH. CHAIR ALARM ON.
--- NOTE | 2022-02-14 12:46 | NUR ---
MED REC COMPLETE
--- NOTE | 2022-02-14 15:51 | NUR ---
PT RESTING QUIETLY IN BED WITH EYES CLOSED, RESPIRATIONS EVEN AND UNLABORED. MOTHER AT BEDSIDE. CALL LIGHT IN REACH.
--- NOTE | 2022-02-14 17:05 | NUR ---
PT RESTING QUIETLY IN BED, AWAKENS EASILY. MOTHER AT BEDSIDE. PT APPEARS CONTENT. CALL LIGHT IN REACH.
--- NOTE | 2022-02-14 17:58 | NUR ---
PT OUT OF ROOM IN WHEELCHAIR WITH MOTHER.
--- NOTE | 2022-02-14 18:26 | NUR ---
CALLED DR MUNGUIA REGARDING PT NOT VOIDING IN 6 HOURS, BLADDER SCAN RESULTS 205MLS. TELEPHONE ORDER FOR ONE LITER OF LR OVER 4 HOURS AND 2 VIEW ABD XRAY FOR MORNING. ORDERS READ BACK AND CONFIRMED.
--- NOTE | 2022-02-14 18:44 | NUR ---
PT APPEARS NAUSEOUS, GAGGING. PRN ZOFRAN ADMINISTERED.
--- NOTE | 2022-02-14 20:58 | NUR ---
gabrielle from imaging called and asked if pt was suppose to have abd x-ray for tonight or tomorrow. called dr brumfield to clarify md orders, telephone order read back and clarified that pt is to get a 2 view abd x ray tomorrow morning. orders updated. primary rn also updated.
--- NOTE | 2022-02-14 21:02 | NUR ---
pt had thick green colored projectile emesis. gown and pamela wrap around IV site L FA changed. Medicated wtih Phenergan 12.5mg IV. IVF bolus infusing. skin care done by mother too. oral care done. cooperative. Pt on room air, non verbal. Was up in chair. Back to bed w several cues, helped by mom, 2PA. plus helped reposition in bed. generalized edema 2+ hands nad LE. HOB elevated. Was incontinent of large amount of urine plus smear of brown bm. skin care, lotion to red leonel area. cooperative. Parents in room.
--- NOTE | 2022-02-14 23:45 | NUR ---
CALL LIGHT ANSWERED, pt'S MOTHER REPORTS pt HAD THROWN UP. SMALL AMOUNT GREEN EMESIS NOTED. GOWN AND BED CHANGE COMPLETED WITH HELP FROM IVANIA PENALOZA. pt BOOSTED IN BED, BED ALARM RESUMED AND CALL LIGHT IN REACH. MOTHER REMAINS IN ROOM. NO ADDITIONAL NEEDS OR CONCERNS VERBALIZED, WILL CONTINUE TO MONITOR.
--- NOTE | 2022-02-15 00:25 | NUR ---
PT RESTLESS, BED ALARM GOING OFF, DROWSY AT TIMES, GEODON 20MG IV GIVEN R HIP. PROCEDURE EXPLAINED, NON VERBAL. HOB ELEVATED TO COMOFRT, NO RESP DISTRESS, BED ALARMS IN PLACE, FAMILY IN ROOM.
--- NOTE | 2022-02-15 01:24 | NUR ---
calmer, eyes closed, no distress, hob elevated, ivf infusing w/o problems. bed alrm on, family rooming in. no further c/o n/v
--- NOTE | 2022-02-15 06:25 | NUR ---
0545 - generator test, comp down- pt had green colored emesis again. was sleeping soundly prior to that. Medicated at this time with Zofran 8mg IV. 0610 - hob elevated, inc of urine, attends changed. cooperative. IVF infusing w/o problems. NPO, oral care done. Family in room 0626 - Lab in room,
--- NOTE | 2022-02-15 06:56 | NUR ---
duane from imaging confirmed that pt is on the schedule to get 2 view of abd x-ray, per duane, order is not seen on our end because international trade specialist cannot put in a 2 view so imaging had to edit it.
--- NOTE | 2022-02-15 07:45 | NUR ---
PT RESTING QUIETLY IN BED WITH EYES CLOSED. RESPIRATIONS EVEN AND UNLABORED. MOTHER AT BEDSIDE. INFORMED MOTHER OF SURGERY PLANNED THIS AM, ALL QUESTIONS ANSWERED AND CONSENT SIGNED. CALL LIGHT IN REACH.
--- NOTE | 2022-02-15 08:23 | NUR ---
PREOP WIPES COMPLETED. MORNING ASSESSMENT COMPLETE. HYPOACTIVE BOWEL TONES, PT VOMITTING, PRN PHENEGRAN GIVEN, SEE MAR. MOTHER AT BEDSIDE. NO FURTHER NEEDS AT THIS TIME. CALL LIGHT IN REACH.
--- NOTE | 2022-02-15 10:58 | NUR ---
PT TAKEN TO OR FOR SURGERY. CONNECTED WITH MOTHER, GAVE PAGER AND COMFORT. SHE WAS VISIBLY UPSET AND SOMEWHAT EMOTIONAL. WILL FOLLOW
--- NOTE | 2022-02-15 11:00 | NUR ---
PATIENT TO OR, WILL RETURN TO CHECK ON PATIENT AT A LATER TIME.
--- NOTE | 2022-02-15 11:31 | NUR ---
02/15/22 1131 Chasity Hernandez 1119- PT ARRIVED FROM PACU. RESPONSIVE WITH STUMULI. OP REMOVED BY ANASTHESIA UPON ARRIVAL TO PACU. 1125 - PT OPENING EYES AND MOVING EXTREMITIES. PT WEANTD TO ROOM AIR, MAINTAINING ABOVE 90%.
--- NOTE | 2022-02-15 11:47 | NUR ---
PT BACK TO ROOM VIA BED, REPORT RECEIVED FROM BERKLEY PENALOZA, ALL QUESTIONS ANSWERED. MIDLINE INCISION WITH CRISTIANA, GAUZE AND JULIA TAPE INTACT WITH SCANT AMOUNT OF SHADOWING NOTED. PT O2 SAT 89% ON RA, BLOWBY OXYGEN PROVIDED, O2 SAT TO 91%. BP 109/63 (74), HR 79, RESPIRATORY RATE 16, TEMP 98.06. MOTHER AT BEDSIDE.
--- NOTE | 2022-02-15 12:43 | NUR ---
PT DROWSY BUT EASILY AROUSABLE. MIDLINE INCISION DRESSING INTACT, NO INCREASE IN SHADOWING NOTED. HYPOACTIVE BOWEL TONES. PT APPEARS COMFORTABLE, FLACC 0. MOTHER AT BEDSIDE. CALL LIGHT IN REACH AND BED ALARM ON.
--- NOTE | 2022-02-15 13:44 | NUR ---
MIDLINE INCISION DRESSING INTACT, NO INCREASED SHADOWING NOTED. PT DROWSY YET EASILY AWAKENS. DESIGNER ARCHITECT DEVIKA IN ROOM TO SIT.
--- NOTE | 2022-02-15 14:40 | NUR ---
IN ROOM FOR ASSESSMENT AND VITAL SIGNS. TIA COMPUTER GRAPHIC ARTIST IN ROOM ONE TO ONE SITTER. PT APPEARS AGITATED, PULLING AT CLOTHING AND TUBES. O2 SAT 88% ON BLOWBY OXYGEN. BATTING AT BLOW BY BEING PROVIDED. O2 SAT BETWEEN 85-88% NASIM FRITZ RN IN ROOM, LAINE MARTINEZ CALLED FOR ASSISTANCE.
--- NOTE | 2022-02-15 15:15 | NUR ---
PT AGITATED, CRAWLING OUT OF BED, HAS REMOVED MIDLINE INCISION DRESSING. MIDLINE INCISION LEANING SMALL AMOUNTS OF RED DRAINAGE. OXYGEN SATURATION 86% ON MONITOR. CA POWER AND MICHELLE VICTORIA AT BEDSIDE WORKING TO CALM PT. RT CALLED AND TO BEDSIDE. SMITA ORDOÑEZ, RT, PLACES BLOW BY OXYGEN. PRN PAIN MEDICATION GIVEN (SEE MAR). PT UP TO WHEELCHAIR AND BEGINS TO CALM. THIS RN REMAINS WITH PT FOR 1:[address] MUNGUIA CALLED BY CA POWER AND UPDATED. ORDERS GIVEN FOR PAIN MEDICATIONS.
--- NOTE | 2022-02-15 16:00 | NUR ---
THIS RN REMAINS IN ROOM 1:1 WITH PT. AGITATION IMPROVING BUT PT CONTINUES TO BE RESTLESS. FLACC SCORE OF 5/10. PT BECOMING DROWSY. OXYGEN SATURATION NOW 92% ON ROOM AIR. DR MUNGUIA UPDATED. NEW ORDERS FOR MIDLINE INCISION DRESSING GAUZE AND SILK TAPE TO BE REAPPLIED. ABDOMINAL BINDER REQUESTED AND ORDERED BY DR. MUNGUIA. DR. MUNGUIA STATES OK TO SPOT CHECK OXGYEN SATURATION. OXYGEN SATURATION NOW 92% ON ROOM AIR. ABDOMEN CLEANED OF RED DRAINAGE WITH BABY WIPES. NEW GAUZE AND SILK TAPE DRESSING APPLIED. ABDOMINAL BINDER PLACED AND SECURED. NEW FRESH GOWN APPLIED. CARES PERFORMED BY THIS RN WITH ASSISTANCE FROM MICHELLE VICTORIA. PT BACK TO BED AND UP TO [facility] DURING CARES. DR. RAMOS TO BEDSIDE FOR ROUNDS. THIS RN REMAINS AT BEDSIDE FOR 1:1 OBSERVATION.
--- NOTE | 2022-02-15 16:43 | NUR ---
PT CALMING. PT HAS BEEN UNABLE TO REMOVE ABDOMINAL DRESSING WITH ABDOMINAL BINDER IN PLACE. IV SITE RESECURED WITH CORBY WRAP. SHOWER CAP WITH DRY SHAMPOO USED. PTS HAIR COMBED. PT CALMS WITH CARES. 1 PERSON ASSIST BACK TO BED. PT RESING WITH EYES CLOSED. OXGYEN SATURATION REMAINS AT 92% ON ROOM AIR. RESPIRATIONS EVEN AND UNLABORED. BED RAILS UP. CALL LIGHT WITHIN REACH. PTS MOTHER AT BEDSIDE. THIS RN REMAINS AT BEDSIDE FOR 1:1 OBSERVATION.
--- NOTE | 2022-02-15 16:59 | NUR ---
PT RESTLESS AND PULLING AT IV SIDE. SOCK SLEEVE PLACED OVER IV SITE. PTS PRIMARY RN TNOO UPDATED. CARTOONS TURNED ON FOR PT AND PT CALMS. THIS RN REMAINS AT BEDSIDE FOR 1:1 CARES. BED RAILS UP. CALL LIGHT WITHIN REACH. PTS MOTHER ALSO AT BEDSIDE.
--- NOTE | 2022-02-15 17:30 | NUR ---
BERKLEY RN IN ROOM ONE TO ONE SITTER AT THIS TIME. PT SITTING IN WHEELCHAIR, STOOD TO CHANGE BRIEF TWO PERSON STADNBY MINIMAL ASSIST. ABD BINDER IN PLACE, WITH MIDLINE DRESSING UNDER SMALL AMOUNT OF RED SHADOWING NOTED. PT APPEARS MORE CALM, FOLLOWING SIMPLE COMMANDS. PT BACK TO WHEELCHAIR FOR RIDE AROUND UNIT WITH MOTHER.
--- NOTE | 2022-02-15 17:31 | NUR ---
THIS RN REMAINS AT BEDSIDE. PT AGITATED AND CRAWLING OUT OF BED. 1 PERSON ASSIST UP TO WHEELCHAIR. DEPENDS NOTED TO BE SATURATED. CHELSY CARE DONE. DEPENDS CHANGED. PT OUT OF ROOM FOR WHEELCHAIR RIDE WITH MOTHER.
--- NOTE | 2022-02-15 18:02 | NUR ---
PT RETURNED FROM RIDE WITH FAMILY IN WHEELCHAIR. PT CALM AND COOPERATEIVE PT MAKING VOCAL NOISES THAT FAMILY STATE IS PTS FORM OF "HELLO." VITAL SIGNS STABEL OXGYEN SATURATION REMAINS 92% ON ROOM AIR. FLACC SCORE OF 1/10. SCHEDULED IV TYLENOL GIVEN. NO ADDITONAL NEEDS AT THIS TIME. THIS RN REMAINS IN ROOM 1:1 WITH PT.
--- NOTE | 2022-02-15 18:09 | NUR ---
PT SITTING IN WHEELCHAIR, PARENTS AT BEDSIDE. PT APPEARS MUCH MORE CALM. SITTING CALMLY AND STILL IN CHAIR, FLACC 0. SPOKE WITH SHANI RN REGARDING NO FURTHER NEED FOR ONE TO ONE SITTER WHILE PT CALM AND PARENTS IN ROOM. WILL REASSESS NEEDED. CALL LIGHT IN PARENTS REACH. CAREGIVER MEALS ORDERED.
--- NOTE | 2022-02-15 18:10 | NUR ---
1:1 OBSERVATION ENDING. PT UP TO WHEELCHAIR. CALM AND COOPERATIVE. BOTH PARENTS AT BEDSIDE. CALL LIGHT WITHIN REACH. PARENTS ENCORUAGED TO CALL AT ANYTIME. PTS PRIMARY RN, TONO, UPDATED ON CARES PROVIDED TO PT.
--- NOTE | 2022-02-15 19:11 | NUR ---
NURSE COMPLETED VITALS AND I/O'S FOR PATIENT.
--- NOTE | 2022-02-15 19:51 | NUR ---
Pt up in chair, room air, spot checks 92-94%, calm, 3/10 abd discomfort. abd binder in place. legs dependent. RT in room. Parents in room
--- NOTE | 2022-02-15 22:04 | NUR ---
Pt back to bed from chair, 2pa. semicoop. On room air, lungs clear. abd binder in placde,midline incision covered with abd. angelito, tender, distended abd. pt did try to pull at abd binder when in bed. inc of urine, attends changed, skin care. restless, moving legs, moaning, medicated with Dilaudid 0.5mg per 9/10 flacc scale pain. repositioned in bed, taking gown and pulling at iv lines and binder, redirectable, cpox off as she takes it off. scds off at this time as she kept trying to pull them off. parents in room
--- NOTE | 2022-02-15 22:44 | NUR ---
WAS MEDICATED EARLIER, NOT EFFECTIVE, MOANING, RESTLESS, NON VERBAL. FLACC 5/1.0 ABD PAIN. PULLING AT ABD BINDER AND TRYING TO SIT UP IN BED, MOANING. MEDICATED WTIH DILAUDID 0.05MG IV
--- NOTE | 2022-02-15 23:30 | NUR ---
THIS CREDIT REPORTER HAS BEEN SITTING AT PT BEDSIDE, PT LIEK HAND TO BE HELD, PT STARTS TO CLOSE EYES FREQENTLY, BECOMES LESS RESTLESS, RR COUNTED TO BE 16brm, PT HAS NOT TOLERATED CPOX ON TOE OR FINGER, NO TIN PLACE AT THIS TIME, RN AWARE OF PT STATUS, BED ALARM IN PLACE, MOTHER IN ROOM
--- NOTE | 2022-02-16 | NUR ---
RESTING, EYES CLOSED, NO RESP DISTRESS, IVF INFUSING, LAC, AREA COVERED TO PREVENT ACCIDENTAL PULLING BY PT. R ARM CONTRACTURE MOVES FINGERS WELL, TRIED TO PLACE CPOX ON TOES, NOT TOLERATING IT. HOB ELEVATED. FAMILY IN ROOM
--- NOTE | 2022-02-16 01:12 | NUR ---
RT IN ROOM, PT RESTING, EYES CLOSED, SPOT O2 CHECKS 87%, PLACED ON BLOW BY O2 10L. SATS 88-93%. CURRENTLY AT 94% ON BB O2. PULSE FLUCTUATING BETWEEN 48-54 RESP 15. MOVES R HANDS AND LEG WHEN TRYING TO PLACE CPOX.
--- NOTE | 2022-02-16 01:50 | NUR ---
pt drowsy, awakes easily. post op cpox in place, bb o2 10l sats 94%, pulse 48-56, resp 15-18. 96/60bp, goes back to sleep, IVF infusing. IV tylenol infusing at this time, no s/sx distress at this time. Abd binder in place. Family in room
--- NOTE | 2022-02-16 03:22 | NUR ---
ON ROOM AIR, NO S/SX DISTRESS. MEDICATED WITH SCHEDULED TORADOL PER 07/02 ABD PAIN. POST OP CPOX INPLACE SATS 92% BLOW BY O2, PULSE 54, RESP 16. MOVES ARMS. IVF INFUSING W/O PROBLEMS. ABD BINDER IN PLACE, SCDS OFF THEY WERE MAKING HER MORE RESTLESS. ALRMS ON, MOTHER ROOMING IN
--- NOTE | 2022-02-16 04:14 | NUR ---
On blowby O2, sats 92-94% while sleeping, pulse 56 at this time. no distress. IVF infusing w/o problems. abd dressing in place. Family rooming in
--- NOTE | 2022-02-16 06:15 | NUR ---
Pt more awake, pulled CPOX tube connector off, pulling at abd binder. agitated, medicated with Dilaudid 1mg IV. spot O2 check at that time 92%. on blowby, trying to smack blow by off. Distracted, Blow by on L side of face. will leave cpox off due to increased agitation, SCDS off as they agitated her as well. Incontinent of urine, attends chaged. NPO. turned and repositioned. Calmer at thist [place]. Resp 16, P59. unable to do spot check as she got more agitated while trying to do check. non verbal. mother rooming in
--- NOTE | 2022-02-16 07:02 | NUR ---
making gagging sound and placing fingers in mouth. Medicated with Zofran 8mg IV per s/sx nauseaus. repositioned in bed. hob elevated. blow by O2 inplace. Mildy restless still trying to take abd binder off. redirectable, moving legs.
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
--- NOTE | 2022-02-16 08:09 | NUR ---
MORNING ASSESSMENT COMPLETE. MEDLINE DRESSING OLD DRAINAGE, NO INCREASE TO SHAWDOING CIRCLED. ABD BINDER IN PLACE. PT PULLS AT BINDER AND DRESSING. PT APPEARS COMFORTABLE, FLACC 1. HYPOACTIVE BOWEL TONES. O2 SAT 92% WITH BLOWBY AT 10LPM. DR MUNGUIA IN TO SEE PATIENT. CALL LIGHT IN REACH OF PARENT. DENIES NEEDS AT THIS TIME.
--- NOTE | 2022-02-16 10:03 | NUR ---
PT CALMLY RESTING IN BED, SPOT CHECK O2 SAT AT 96% WITH BLOWBY. PT MOTHER AT BEDSIDE. CALL LIGHTIN REACH OF MOTHER. BED ALARM ON.
--- NOTE | 2022-02-16 11:15 | NUR ---
PAUL PENALOZA IN ROOM TO START US IV. MOTHER AT BEDSIDE.
--- NOTE | 2022-02-16 12:16 | NUR ---
PT OUT FOR RIDE IN WHEELCHAIR WITH MOTHER AND BACK TO ROOM. SPOT CHECK O2 SAT 94% ON RA. PT BACK TO ROOM IN WHEELCHAIR. MOTHER AT BEDSIDE, DENIES FURTHER NEEDS AT THIS TIME.
--- NOTE | 2022-02-16 13:12 | NUR ---
PT ASSISTED TO BED FROM WHEELCHAIR, 2 PERSON ASSIST. CALL LIGHT IN MOTHER'S REACH. PT APPEARS TigerspikeFORSinglyBEL FLACC 0. BED ALARM ON.
--- NOTE | 2022-02-16 14:10 | NUR ---
PT LYING IN BED, PRN DILUADID ADMINISTERED, FLACC 3. PT O2 SAT 92% ON RA AFTER ADMINISTRATION. PT REACHED UNDER ABD BINDER AND PULLED HALF MIDLINE DRESSING OFF. MIDLINE DRESSING COMPLETELY REMOVED AND REPLACE, ABD PAD, GAUZE AND SILK TAPE. ABD BINDER READJUSTED AND PLACED. PT BRIEF WET, CHANGED AND PERICARE PROVIDED. PT MOTHER AT BEDSIDE. CALL LIGHT IN REACH OF MOTHER.
--- NOTE | 2022-02-16 15:12 | NUR ---
PT RESTING IN BED WITH EYES CLOSED, OCCASIONAL MOAN. MOTHER STATES MOAN IS BASELINE BEHAVIOR FOR PATIENT. CALL LIGHT IN MOTHERS REACH.
--- NOTE | 2022-02-16 16:43 | NUR ---
PT RESTING QUIETLY WITH EYES CLOSED, RESPIRATIONS EVEN AND UNLABORED. PT MOTHER AT BEDSIDE. CALL LIGHT IN REACH OF MOTHER. BED ALARM ON.
--- NOTE | 2022-02-16 16:54 | NUR ---
PT RESTLESS, UP TO WHELLCHAIR AND OUT OF ROOM FOR RIDE WITH MOTHER.
--- NOTE | 2022-02-16 17:43 | NUR ---
PT WHEELED AROUND UNIT IN WHEELCHAIR AND BACK TO ROOM. MOTHER IN ROOM.
--- NOTE | 2022-02-16 18:42 | NUR ---
PT UP FROM WHEELCHAIR AND INTO BED, BRIEF CHANGED. PT PULLED MIDLINE DRESSING OFF FROM UNDER ABD BINDER. REDRESSING WITH ABD PAD, SILK TAPE. ABD BINDER REPOSTIONED.
--- NOTE | 2022-02-16 19:45 | NUR ---
PT IN BED, ON ROOM AIR, IVF INFUSING. ABD BINDER INPLACE, CALM, MOTHER AT BEDSIDE
--- NOTE | 2022-02-16 20:10 | NUR ---
PT ON ROOM AIR, TRIED TO DO ASSESSMENT ON PT, GURGLING SOUND NOTED. PT UNABLE TO CDB, UPPER LUNGS CLEARS UNABLE TO CONTINUE ASSESSMENT. UNABLE TO DO O2 SPOT CHECKS, PUSHING HANDS AND STHETHESCOPE AWAY FROM HER BODY, WILL TRY VITALS AND ASSESSMENT LATER. CALMED DOWN WHEN LEFT ALONE. IVF INFUSING. RT NOTIFIED TO COME AND ASSESS PT
--- NOTE | 2022-02-16 20:30 | NUR ---
PT'S MOM UTILIZES CALL LIGHT, STATES THAT PT FELL. STORY TELLER AND OTHER RN TO ROOM. PT'S MOM STATES THAT PT SAT ON THE FLOOR. PT'S MOM ALSO REPORTS TO STAFF THAT THIS IS A COMMON BEHAVIOR FOR PT AT HOME. STAFF ASSIST TO GET PT BACK TO BED OR CHAIR. PT PUSHING STAFF, MAKING VOCALIZATIONS. EVENTUALLY PT ABLE TO SIT IN RECLINER, HOWEVER CONTINUES TO ATTEMPT TO EXIT CHAIR DESPITE FREQUENT REORIENTATION. PRIMARY RN TO ROOM. PRN AND SCHEDULED MEDCIATIONS ADMINISTERED. PT SITTING IN CHAIR QUIETLY, NO LONGER MAKING ATTEMPTS TO EXIT THE CHAIR OR STAND UP. PT'S DAD ARRIVES AT CHAIRSIDE. PRIMARY RN AND FLOAT RN PRESENT WITH PT. STORY TELLER EXITS THE ROOM.
--- NOTE | 2022-02-16 21:02 | NUR ---
PT VERY RESTLESS, GOT OUT OF BED, ANXIOUUS AGITATED. NOT FOLLOWING INSTRUCTIONS. MEDICATED WITH SCHEDULED TORADOL IV AND GEODON IM L THIGH. NOT EFFECTIVE, GIVEN DILAUDID 1MG IV. IN CHAIR, STILL ANXIOUS AND RESTLESS. UNABLE TO ASSESS LUNGS COMPLETELY. ABD BINDER IN PLACE, IVF SL AT THIST ARABELLA DUE TO RESTLESSNESS/AGITATION, WILL RESTART WHEN CALMER. IN RECLINER CHAIR. CALMER, MEDS WORKING. HOB ELEVATED FATHER IN ROOM
--- NOTE | 2022-02-16 21:32 | NUR ---
BACK IN BED, HOB ELEVATED. EYES CLOSED, CALMER. ABD BINDER IN PLACE. WILL RESTART IVF, MOTHER AT BEDSIDE
--- NOTE | 2022-02-16 22:11 | NUR ---
2207 - DR RAMOS NOTIFIED OF PT RESTLESSNESS,ANXIETY, AGITAION AND GETTING OUT OF BED AND SITTING ON THE FLOOR. HARD TO REDIRECT. 3 NURSING STAFF IN FLOOR AND MOTHER. PT HELPED BACK TO CHAIR AFTER MANY REDIRECTION. THAT PT WAS MEDICATED WITH TORADOL SCHEDULED, GEODON 20MG IM FOR AGITATION AND AND DILAUDID 1MG IV PER PAIN. PT CALM NOW, NO INJURIES. NO NEW ORDERS 2209 - DR MUNGUIA NOTIFIED OF ABOVE, NO NEW ORDERS
--- NOTE | 2022-02-16 22:37 | NUR ---
RESTIGN, SNORING SOFTLY. HOB ELEVATED. SATS 94% ON ROOM AIR, PULSE 66, RESP 15. NO DISTRESS. IVF RESTARTED. SITE PATENT, COVERED WITH CORBY WRAP FOR PROTECTION. ABD BINDER INPLACE. BED ALRMS ON, MOTHER AT BEDSIDE
--- NOTE | 2022-02-17 00:23 | NUR ---
pt moaning and moving arms, hob elevated, room air, spot check O2 sats 93% P71. mother rooming in, mother asked if ok to medicate pt. stated ok. Pt medicated with Dilaudid 1mg IV. IVF infusing. light rash still present L upper arm, front chest and upper thighs. unknown cause. abd binder inplace. dressing in place. light redness noted at lower end of dressing. assessment completed. opened eyes and went back to sleep. attends in place Bed alarm in place, spot O2 check done after 1o minutes.sats 92% pulse 66, R16 NPO until further orders, mother rooming in
--- NOTE | 2022-02-17 02:47 | NUR ---
PT RESTING, OPENED EYES WHEN DOING A SPOT CHECKS O2 SAT, WENT BACK TO SLEEP, LIGHT MOAN WHEN TRYING TO GET O2 SAT FROM FINGER. SATS 92% ROOM AIR. ABD BINDER IN PLACE. HOB ELEVATED. BED ALRM ON. MOTHER ROOMING IN
--- NOTE | 2022-02-17 03:59 | NUR ---
MOANING AND GROANING, RESTLESS, TORADOL GIVEN EARLIER NOT EFFECTIVE. MEDICATED IWTH DILAUDID AT THIS TIME. TRYING TO PULL AT IV SITE. REDIRECTED. SPOT O2 SATS 95% P 68, RESP 18
--- NOTE | 2022-02-17 05:04 | NUR ---
PT CURRENTLY CALMER, REDIRECTABLE, STILL TRYING TO PULL AT IV SITE. DROWSY. ON ROOM AIR, UNABLE TO DO CDB , NON VERBAL DUE TO COGNITIVE IMPAIRMENT. HOB ELEVATED. IVF INFUSING DEDE. MIDLINE ABD INCISION COVERED WITH DRESSING, ABD BINDER INPLACE. LIGHT REDNESS NOTED AT BASE OF DRESSING. LIGHT RASH NOTED EARLIER ON SHIFT OVER FRONT CHEST, L UPPER ARM AND THIGHS, IMPROVING BUT STILL THERE AT THIST ARABELLA, UNKNOWN CAUSE. PT HAD GURGLING SOUND IN THROAT AT BEGINIG OF SHIFT, UNABLE TO DO CDB. LUNGS CLEAR. ABD TENDER, OMARI, NOT PASSING GAS. INCONTINENT OF URINE. ATTENDS CHAGNED. COOPERATIVE WITH CHANGING ATTENDS. PT WAS VERY BELLIGERENT, ANXIOUS, AGGRESSIVE, IRRITABLE AT BEGINING OF SHIFT, CRAWLED OUT OF BEF AND STA ON FLOOR, BEHAVIOR SIMILAR AT HOME, MOTHER STATED. NO INJURIES. NOT REDIRECTABLE, UP TO RECLINER CHAIR, STILL TRYING TO GET OUT, PUSHING AT AND TRYING TO HIT STAFF. RECEIVED SCHEDULED TORADOL PER PAIN, GEODON FOR ANXIETY/RESLESSNESS, NOT EFFECTIVE DILAUDID PER ABD PAIN. EFFECTIVE AFTE ONE HOUR. BACK TO BED. BED ALRM ON. HAS BEEN MEDICATED 3X THIS SHIFT WITH DILAUDID PER ABD PAIN, NOT VERY COOP WITH ASSESSMENT, SPOT CHECKS O2 SATS AND PULSE DONE THIS SHIFT. WNL. NO ABNORMAL THROAT SOUNDS AT THIS TIME. TOSSING PILLOWS AND KICKING BEDDING, DECLINED SCDS. VERY DROWSY. HAS BEEN A 1-1 OFF AND ON THIS SHIFT. NPO MOTHER ROOMING IN
--- NOTE | 2022-02-17 06:08 | NUR ---
on room air, eyes closed, calm, no distress. abd binder in place. IVF infusing. Bed alarm on. mother rooming in
--- NOTE | 2022-02-17 07:10 | NUR ---
PT RESTING IN BED WITH EYES CLOSED, RESPIRATIONS EVEN AND UNLABORED. MOTHER AT BEDSIDE. CALL LIGHT IN REACH. BED ALARM ON.
--- NOTE | 2022-02-17 08:00 | NUR ---
patient in the bed resting. mom in the room resting as well. room picked up. call light with in reach. no further needs at this time.
--- NOTE | 2022-02-17 09:44 | NUR ---
MORNING ASSESSMENT COMPLETE. PT APPEARS DROWSY BUT AWAKENS EASILY, O2 SAT 93% ON RA. BOWEL TONES HYPOACTIVE, MIDLINE INCISION COVERED WITH GAUZE AND SILK TAPE, CDI. ABD BINDER IN PLACE. PT APPEARS COMFORTABLE, FLACC 0. MOTHER AWAKE AT BEDSIDE. CALL LIGHT IN REACH. BED ALARM ON.
--- NOTE | 2022-02-17 10:51 | NUR ---
PT AWAKE IN BED, MOTHER AT BEDSIDE. APPEARS CALM AT THIS TIME. CALL LIGHTIN REACH. BED ALARM ON.
--- NOTE | 2022-02-17 11:31 | NUR ---
PT APPEARS UNCOMFORTABLE, FLACC 2. SCHEDULED TORADOL AND PRN DILAUDID GIVEN, SEE MAR. PT UP TO WHEELCHAIR AND OUT FOR RIDE WITH MOTHER.
--- NOTE | 2022-02-17 12:55 | NUR ---
PT BACK TO ROOM WITH MOTHER. SITTING UP IN WHEELCHAIR. FLACC 0. MOTHER AT BEDSIDE. CALL LIGHT IN REACH.
--- NOTE | 2022-02-17 14:32 | NUR ---
PT RESTING IN BED WITH EYES CLOSED, RESPIRATIONS EVEN AND UNLABORED, PT AWAKENS EASILY WHEN ENTERING ROOM. MOTHER AT BEDSIDE. CALL LIGHTIN REACH. BED ALARM ON.
--- NOTE | 2022-02-17 15:29 | NUR ---
PT CONTINUES TO RESTING QUIETLY IN BED WITH EYES CLOSED, RESPIRATIONS EVEN AND UNLABORED, AWAKENS EASILY WHEN EVTERING ROOM. O2 SPOT CHECK 93%. ACTIVE BOWEL TONES, MILDLY DISTENDED ABD. MIDLINE INCISION CDI WITH ABD BINDER IN PLACE. MOTHER AT BEDSIDE. CALL LIGHT IN REACH. BED ALARM ON.
--- NOTE | 2022-02-17 16:27 | NUR ---
PT RESTING AWAKE IN BED, APPEARS COMFORTABLE FLACC 0. MOTHER AT BEDSIDE. CALL LIGHT IN REACH. BED ALARM ON.
--- NOTE | 2022-02-17 17:39 | NUR ---
PT BRIEF CHANGED AND UP TO WHEELCHAIR. OUT OF ROOM FOR RIDE WITH MOTHER.
--- NOTE | 2022-02-17 18:01 | NUR ---
PT BACK TO ROOM IN WHEELCHAIR WITH MOTHER.
--- NOTE | 2022-02-17 19:45 | NUR ---
Pt in wheeled chair going round hallways with mother. Back to bed. helped by 2 PA. alvarez. cooperative. On room air sats 95%. coop tih vitals. abd binder withold drainage at l side. opened and midline incision w dressing in place, old drainage in middle. Distant angelito t/o abd tender, soft, distention at lower abd noted. no redness at this time. Abd binder adjusted and back in place. was very cooperative with assessment of abd. On room air, clear lungs. edema to L lower arm +1 and geneeralized edema to R hand and LE. contracture of R wrist present. non verbal,HOB elevated to comfort NPO. attends dry at thist [place]. mother at bedside
--- NOTE | 2022-02-17 23:15 | NUR ---
DROWSY, OPENS EYES, HOB ELEVATED TO COMOFRT, RESTIN ON R SIDE. NO DISTRESS, IVF INFUSING LUARM. ABD BINDER INPLACE. CLEAN ATTENDS, BED ALRM. NPO MOTHER AT BEDSIDE
--- NOTE | 2022-02-17 23:27 | NUR ---
LIGHT MOANAING AYAAN GROANING NOTED WHEN CHECKING ON PT, MEDICATED WITH DILAUDID 0.5MG IV, DROWSY, OPENS L EYE AND CLOSES IT AGAIN. IVF INFUSING W/O PROBLEMS, SPOT O2 CHECKS 92%. NO DISTRESS. BED ALRM ON, MOTHER ROOMING IN
--- NOTE | 2022-02-18 01:25 | NUR ---
ON ROOM AIR, COMFORTABLE, O PAIN PER FLACC SCALE. IVF INFSING W/O PROBLEMS, ABD BINDER INPLACE, LOWER ABD DISTENTION PRESENT. ATTENDS IN PLACE MOVES EXTREMITIES TO REPOSITION SELF IN BED. NPO, BED ALARM IN PLACE. MOTHER ROOMING IN
--- NOTE | 2022-02-18 03:32 | NUR ---
light moaning earlier. was medicated with scheduled Toradol, comofrtable at thist [place], no distress, moist non productive light cough present, swallows own oral secretions. IVF patent. opens and closed eyesc, calm Bed alarm on. NPO
--- NOTE | 2022-02-18 05:54 | NUR ---
Pt on room air, Has slept this shift. was medicated with Dilaudid x1 and scheduled Toradol per abd discomofrt, non verbal, Flacc pain scale used, and pts restlessness, moaning and groaning behavior when in bed. Midline abd incision with dressing old drainage, intact, abd binder in place. faint but OMARI bowel tones auscultated all 4 quads, area tender to touch, low abd distended. Pt unable to do CDB, moist non productive cough noted off and on when sleeping, able to swallow own secretions. IVF infusin LUAC area. covered with pamela wrap to prevent accidental removal by pt. contractures of R arm and wrist present. weak LE, generalized edema all extremities. NPO. was very coop with procedures all explained prior to. Incontinent of urine, attends in place, skin care. bruising L FA from previous IV. Helps with turning and repositining and into bed, 2PA. Pt has had no aggressive behavior this shift. Mother in room
--- NOTE | 2022-02-18 06:52 | NUR ---
pt awakes easily, oral care done, inc of large amount of urine, skin care, clean attends in place. IV Finfusign w/o problems, turned and repositioned cooperative, calm, Bed alarm on.
--- NOTE | 2022-02-18 07:35 | NUR ---
PT ASLEEP IN BED. NO NEEDS AT THIS TIME. CALL LIGHT WITHIN REACH.
--- NOTE | 2022-02-18 09:45 | NUR ---
PT SITTING UP IN CHAIR, SISTER IN ROOM. MOM WENT HOME TO REST AND TAKE A SHOWER. PT PULLED OFF ABD. DRESSING WHILE THIS RN IN ROOM. REPLACED. INCISION APPEARS WELL APPROX. WITH CRISTIANA INTACT, NO REDNESS NOTED. ASSISTED SISTER TO WASH PTS HAIR, QUICKLY PT DID NOT LIKE. SISTER GAVE BEDBATH SHE WOULD NOT LIKE A SHOWER.
--- NOTE | 2022-02-18 09:53 | NUR ---
PT IN WHEELCHAIR. SISTER IN ROOM. VITALS AND I'S AND O'S TAKEN. DEODORANT GIVEN TO PT. NO FURTHER NEEDS. CALL LIGHT WITHIN REACH.
--- NOTE | 2022-02-18 13:06 | NUR ---
PT RESTING IN BED WITH TV ON. SISTER IN CHAIR. FAMILY DENIES NEEDS ATT.
--- NOTE | 2022-02-18 13:21 | NUR ---
PT SITTING UP IN CHAIR. SISTER GOT HER UP SHE WAS GETTING RESTLESS IN BED. MIGHT WALK IN GRACE LATER.
--- NOTE | 2022-02-18 13:38 | NUR ---
PT AMBULATED IN GRACE, MOST OF THE LENGTH OF GRACE BEFORE TIRING. PT WAS SUPER EXCITED AND LAUGHED THE WHOLE WAY. HARDENING MACHINE OPERATOR'S ANS SISTER TAKING HER FOR A WHEELCHAIR RIDE DOWN TO PATIO.
--- NOTE | 2022-02-18 16:12 | NUR ---
PT RESTING IN BED WATCHING TV. SISTER AT BEDSIDE. IV SITE WNL, REPOSITIONED WRAP AROUND IT IT HAD SLIPPED DOWN.
--- NOTE | 2022-02-18 16:33 | NUR ---
PT AMBULATED IN GRACE AGAIN WITH MOTHER. PT PRACTICALLY RUNS SHE MOVES SO FAST. FOLLOWED WITH WHEELCHAIR FAMILY STATES WHEN SHE GETS TIRED AT HOME SHE WILL JUST PLOP DOWN.
--- NOTE | 2022-02-18 18:21 | NUR ---
PT IN LAYING IN BED. VITALS AND I'S AND O'S TAKEN. PT DEPEND CHANGED. NO FURTHER NEEDS. CALL LIGHT WITHIN REACH.
--- NOTE | 2022-02-18 18:30 | NUR ---
PT BEING CHANGED BY CAMPUS WELLNESS COORDINATOR'S. MOTHER STATES THE IVF IS RUNNING THROUGH HER. WOULD LIKE TO GIVE HER SOMETHING TO DRINK.
--- NOTE | 2022-02-18 19:15 | NUR ---
RECEIVED REPORT FROM CA DRAKE. pt CURRENTLY IN WHEELCHAIR BEING PUSHED AROUND UNIT BY MOTHER. NO REQUESTS AT THIS TIME.
--- NOTE | 2022-02-18 20:19 | NUR ---
PATIENTS MOTHER APPROACHED RN STATION REQUESTING PAIN MEDICATION FOR PATIENT. Pt IS RESTING IN BED MOANING AND RESTLESS. PRN PAIN MEDICATION GIVEN PER ORDER. IV INFUSING PER ORDER. PRIMARY RN NOW PRESENT IN ROOM.
--- NOTE | 2022-02-18 20:20 | NUR ---
V/S AND I&O'S TAKEN AND CHARTED. 2 PA PRIMARY RN JACQUI AND THIS TRAIN BRAKE OPERATOR CHANGED PATIENT'S INCONTINENT ATTENDS. PATIENT REPOSITIONED. FAMILY IN THE ROOM. BED ALARM ON FOR SAFETY.
--- NOTE | 2022-02-18 20:36 | NUR ---
JANET PENALOZA GAVE PRN PAIN MEDICATION. pt RESTING IN BED. ASSESSMENT DONE. DRESSING CDI, ABD BINDER IN PLACE. pt WAS RESTLESS AND TRYING TO GET UP. FATHER RECOMMENDED CHANGING HER DEPENDS. pt ABLE TO ASSIST WITH TURNING. FRESH DEPENDS IN PLACE. pt REPOSITIONED IN BED. HOB ELEVATED. pt NOW RESTING QUIETLY IN BED. NO FURTHER REQUESTS AT THIS TIME. FATHER WILL REMAIN WITH pt TONIGHT. CALL LIGHT WITHIN REACH. BED ALARM ON.
--- NOTE | 2022-02-18 22:00 | NUR ---
ROUNDED ON pt. RESTING IN BED AWAKE. FATHER AT BEDSIDE. NO REQUESTS AT THIS TIME. CALL LIGHT WITHIN REACH.
--- NOTE | 2022-02-19 01:18 | NUR ---
ROUNDED ON pt, RESTING IN BED WITH EYES CLOSED, RESPIRATIONS REGULAR AND UNLABORED. CALL LIGHT WITHIN REACH. FATHER AT BEDSIDE.
--- NOTE | 2022-02-19 03:10 | NUR ---
IN TO GIVE MEDICATION. DEPENDS WET, CHANGED, PERICARE DONE. ASSESSMENT UNCHANGED. pt WAS ASLEEP WHEN THIS RN ENTERED THE ROOM. WOKE TO VOICE, HELPED WITH TURNING. REPOSITIONED. IMMEDIATELY BACK TO RESTING WITH EYES CLOSED, BED ALARM ON. FATHER AT BEDSIDE. CALL LIGHT WITHIN REACH.
--- NOTE | 2022-02-19 04:01 | NUR ---
FATHER INFORMED THIS RN IV PUMP WAS BEEPING. ERROR CLEARED. pt RESTING IN BED, EYES CLOSED, RESPIRATIONS REGULAR AND UNLABOED. pt HAS REPOSITIONED SELF IN BED. BED ALARM ON. FATHER AT BEDSIDE.
--- NOTE | 2022-02-19 06:32 | NUR ---
IN WITH DR MUNGUIA FOR ASSESSMENT. DRESSING TAKEN OFF BY DR MUNGUIA, INCISION WELL APPROXIMATED AND DRY. DRESSING REPLACED, ABDOMINAL BINDER IN PLACE. pt AWAKE AND CALM IN BED. pt PREFERS APPLE JUICE, KITCHEN CALLED AND WILL BRING SOME FOR BREAKFAST.
--- NOTE | 2022-02-19 06:56 | NUR ---
BED ALARMING, pt GETTING UP OUT OF BED. ASSISTED. WHEN pt WAS GETTING UP SHE PASSED GAS. DR MUNGUIA NOTIFIED. pt NOW SEATED IN WHEELCHAIR BEING PUSHED BY FATHER.
--- NOTE | 2022-02-19 07:25 | NUR ---
REPORT FROM KIMBERLY OSMAN RN.
--- NOTE | 2022-02-19 07:55 | NUR ---
PT IN CHAIR. NEW BRIEF PUT ON PT BY BOILERS AND PRESSURE VESSELS INSPECTOR AND NURSE. PT ASSISTED TO WHEELCHAIR BY BOILERS AND PRESSURE VESSELS INSPECTOR AND PTS FATHER. NO FURTHER NEEDS. CALL LIGHT WITHIN REACH.
--- NOTE | 2022-02-19 08:14 | NUR ---
PATIENT UP TO WHEELCHAIR, VERY RESTLESS AND IV IS NOT HOOKED UP AT THIS TIME. FATHER AND SISTER ARE WITH PATIENT. MIRALAX MIXED WITH 200ML OF APPLEJUICE AND IN PATIENT'S SIPPY CUP.
--- NOTE | 2022-02-19 09:13 | NUR ---
BED BATH GIVEN. NEW DEPENDS PUT ON. NEW SOCKS PUT ON PT. PT LAYING IN BED FOR NAP WITH SISTER IN THE ROOM. NO FURTHER NEEDS. CALL LIGHT WITHIN REACH.
--- NOTE | 2022-02-19 09:47 | NUR ---
PT ASLEEP IN BED. SISTER BY BEDSIDE. VITALS AND I'S AND O'S TAKEN. NO FURTHER NEEDS. CALL LIGHT WITHIN REACH.
--- NOTE | 2022-02-19 10:04 | NUR ---
PATIENT IS LYING IN BED, VERY RESTLESS AND PICKING AT IV. PATIENT IS SALINE LOCKED AT THIS TIME DUE TO HER RESTLESSNESS, IV IS RESECURED. CAREGIVER IS IN ROOM. PATIENT IS TOLERATING CLEAR LIQUIDS WELL SO FAR.
--- NOTE | 2022-02-19 11:00 | NUR ---
PATIENT GIVEN MEDICATIONS WITH BITE OF APPLESAUCE, ABLE TO TAKE PILLS WELL.
--- NOTE | 2022-02-19 11:03 | NUR ---
PATIENT GIVEN A CLEAR ENSURE FOR LUNCH, CHANGED OF LARGE INCONTINENT VOID.
--- NOTE | 2022-02-19 11:40 | NUR ---
Spoke with pt's sister, pt is sleeping. She denies needs. Sister has been very helpful, taking pt in wc rides.
--- NOTE | 2022-02-19 11:56 | NUR ---
PT SITTING IN WC DRINKING GATORADE. CONNECTED WITH CAREGIVER, NOT NEEDS AT THIS TIME. WILL FOLLOW
--- NOTE | 2022-02-19 12:00 | NUR ---
PATIENT IS IN BED, RESTING. SISTER IS IN ROOM WITH HER.
--- NOTE | 2022-02-19 13:31 | NUR ---
PT IN BED. SISTER BY BEDSIDE. VITALS AND IS AND OS TAKEN. NO FURTHER NEEDS. CALL LIGHT WITHIN REACH.
--- NOTE | 2022-02-19 14:47 | NUR ---
PATIENT'S FATHER IS IN ROOM WITH PATIENT, PATIENT IS VERY ACTIVE TODAY UP AND DOWN FROM CHAIR.
--- NOTE | 2022-02-19 15:27 | NUR ---
PATIENT GIVEN IM GEODON FOR AGITATION, BOTH PARENTS IN ROOM AND WERE UNABLE TO MOVE PATIENT OFF OF FLOOR.
--- NOTE | 2022-02-19 15:33 | NUR ---
PT UP AND WALKED FROM ROOM TO THE BIG PAINTING WITH 2PA AND WHEELCHAIR BEHIND HER. PT BACK IN WHEELCHAIR WITH PARENTS. NO FURTHER NEEDS AT THIS TIME.
--- NOTE | 2022-02-19 15:33 | NUR ---
CALL TO DR. RAMOS THAT PATIENT REQUIRED I.M. GEODON FOR AGITATION AND THAT FATHER HAD MENTIONED THAT PATIENT USUALLY TAKES TRAZADONE AT .
--- NOTE | 2022-02-19 16:23 | NUR ---
PATIENT IS RESTING IN BED NOW, DOES NOT APPEAR AGITATED. PARENTS ARE IN ROOM.
--- NOTE | 2022-02-19 17:20 | NUR ---
PT ASLEEP IN BED. PARENTS AT BEDSIDE. VITALS AND IS AND OS TAKEN. NO FURTHER NEEDS. CALL LIGHT IN REACH.
--- NOTE | 2022-02-19 18:21 | NUR ---
PATIENT CONTINUES TO SLEEP, RESPIRATIONS ARE REGULAR. SCHEDULED IV TORADOL GIVEN. MOM IS IN ROOM.
--- NOTE | 2022-02-19 19:00 | NUR ---
RECEIVED REPORT FROM DAY SHIFT RN. PATIENT IS RESTING IN BED WITH EYES CLSOED, RR 17. CALL LIGHTIN REACH. PARENTS PRESENT IN THE ROOM AND DENY ANY NEEDS. CALL LIGHT IN REACH. BED ALARM ON FOR SAFETY.
--- NOTE | 2022-02-19 22:15 | NUR ---
PATIENT ASSESMENT COMPLETED. PATIENTS VITALS TAKEN AND RECORDED. PATIENT INCONT OF URINE. PATIENTS ATTEND CHANGED AND CHELSY CARE COMPLETED. PATIENT REPOSITIONED IN BED. PATIENT GIVEN PILLS IN APPLESUACE. MIRALAX IN APPLE JUICE. PM MEDS PER ORDER. PATIENTS IV INFUSING PER ORDER. PATIENTS MID ABD DRESSING IS C/D/I, NO DRAINAGE NOTED. PATIENTS ABD BINDER IN PLACE. NO NEDS NOTED. CAREGIVEER ASLEEP IN THE COUCH. CALL LIGHT IN REACH. BED ALARM ON FOR SAFETY.
--- NOTE | 2022-02-19 23:01 | NUR ---
PATIENTS FAMILY MEMBER APPROACHED RN STATION. Pt IS RESTLESS IN BED. PATIENT APPEARS TO BE IN PAIN AND FAMILY REPORTS PAIN. PRN PAIN MEDICATION GIVEN PER ORDER. [facility] COMPLETED. NO FURTHER NEEDS NOTED. CALL LIGHT IN REACH. BED ALARM ON FOR SAFETY. IV INFUSING PER ORDER. FAMILY REMAINS IN ROOM.
--- NOTE | 2022-02-19 23:40 | NUR ---
PATIENT REPOSITIONED IN BED. NO FURTHER NEEDS NOTED. CALL LIGHT IN REACH. BED ALARM ON FOR SAFETY. IV INFUSING PER ORDER.
--- NOTE | 2022-02-20 00:57 | NUR ---
PATIENT IS RESTING IN BED WITH EYES CLOSED, RR 16. CALL LIGHT IN REACH. BED ALARM ON FOR SAFETY. SISTER ASLEEP ON THE COUCH.
--- NOTE | 2022-02-20 02:47 | NUR ---
PATIENTS SCHEDULED MEDS GIVEN PER ORDER. SIPS OF JUICE PROVIDED. PATIENTS IS INFUSING PER ORDER AND SHOWS NO S/SX OF INFILTRATION. PATIENT REPOSITIONED. ATTEND IS DRY AT THIS TIME. PATIENTS CALL LIGHT IN REACH. BED ALARM ON FOR SAFETY. SISTER ASLEEP ON THE COUCH.
--- NOTE | 2022-02-20 04:05 | NUR ---
PATIENT REPOSITIONED IN BED. NO NEEDS NOTED. PATIENT DOES NOT APPEAR TO BE IN PAIN. CALL LIGHT IN REACH. BED ALARM ON FOR SAFETY. SISTER ASLEEP ON THE COUCH. ATTEND IS DRY AT THIS TIME. IV INFUSING PER ORDER.
--- NOTE | 2022-02-20 06:44 | NUR ---
PATIENT INCONT OF URINE. PATIENTS ATTEND CHANGED AND CHELSY CARE COMPLETED. PATIENTS BEDDING CHANGED. PATIENT ASSISTED TO WHEELCHAIR. DAD PRESENT IN THE ROOM AND FEEDING HER APPLESAUCE. NO FURTHER NEEDS NOTED. CALL LIGHT IN REACH.
--- NOTE | 2022-02-20 07:07 | NUR ---
pt up in chair. am cares done. father in room.
--- NOTE | 2022-02-20 07:10 | NUR ---
PATIENT IS AGITATED AND PULLING ON HER LINES AND CRAWLING ON THE FLOOR. ATTEMPTED TO WALK PATIENT TO ASSIST HER TO SETTLE. PATIENT GIVEN PRN MEDICATION PER ORDER. PATIENT IS NOW RESTING IN RECLINER. PATIENTS DAD PRESENT IN THE ROOM. CALL LIGHT IN REACH.
--- NOTE | 2022-02-20 07:15 | NUR ---
BEDSIDE HANDOFF REPORT RECEIVED FROM INFECTIOUS DISEASES PHYSICIAN RN. PT RESTING IN CHAIR, HOSE HANDLER AT BEDSIDE, FATHER IN ROOM.
--- NOTE | 2022-02-20 08:00 | NUR ---
PT WITH CONTINUED RESTLESSNESS, WALKED IN GRACE WITH 2PA AND WHEELCHAIR FOLLOW, MULTIPLE LAPS.
--- NOTE | 2022-02-20 08:20 | NUR ---
PT IN WHEELCHAIR. PT TAKEN AROUND NURSES STATION VIA WHEELCHAIR BY 2 CNAS. PT PUT INTO CHAIR. PT DEPENDS CHANGED. PT GIVEN BLANKET WHILE LAYING IN CHAIR. NO FATHER IN ROOM. NO FURTHER NEEDS. CALL LIGHT WITHIN REACH.
--- NOTE | 2022-02-20 09:30 | NUR ---
PT INITIALLY SITTING IN CHAIR, RESTLESS, ASSISTED TO TRANSFER TO BED. FATHER AT BEDSIDE. PT ON ROOM AIR, LUNG SOUNDS CLEAR. BOWEL TONES ACTIVE, TOLERATED FULL LIQUID BREAKFAST. ABD BINDER IN PLACE, REPOSITIONED. MIDLINE DRESSING WITH ABD PAD, CDI, DISCUSSED WITH FATHER TO CHANGE DRESSING AFTER SHOWER. FATHER REQUESTED PAIN MEDICATION, FLACC SCORE 5, GIVEN 1 MG IV DILAUDID. ORAL MEDICATIONS GIVEN WITH APPLE SAUCE. PT INCONTINENT, ATTENDS IN PLACE. PT NOW RESTING IN BED, BED ALARM ON. IV FLUIDS RESUMED AT 75ML/HR. FATHER DENIES OTHER NEEDS AT THIS TIME.
--- NOTE | 2022-02-20 10:16 | NUR ---
PT LAYING IN BED. FATHER IN ROOM. VITALS AND IS AND OS COMPLETE. PT ASLEEP PRIOR TO LAN SUPPORT SPECIALIST LEAVING ROOM. NO FURTHER NEEDS. CALL LIGHT WITHIN REACH.
--- NOTE | 2022-02-20 12:30 | NUR ---
Spoke with pt's dad, pt sleeping. He denies needs.
--- NOTE | 2022-02-20 13:01 | NUR ---
CALLED DR MUNGUIA REGARDING PT NOT WANTING TO EAT ANYTHING ON THE FULL LIQUID DIET AND HE AGREED SHE COULD ADVANCE TO SOFT DIET SO SHE COULD HAVE THE MASHED POTATOES AND GRAVY
--- NOTE | 2022-02-20 13:29 | NUR ---
PATIENT RECIEVED HER MASHED POTATOES AND GRAVY, SHE ATE OVER HALF OF THEM WITH HER FATHER'S ASSISTANCE. PATIENT IS STARTING TO WAKE UP, AND BE MORE ACTIVE, PATIENT NEEDED NO OTHER ASSISTANCE AT THIS TIME CALL LIGHT WITHIN REACH
--- NOTE | 2022-02-20 15:30 | NUR ---
ASSISTED PT TO WHEELCHAIR AND WHEELED PT AROUND THE FLOOR. ASSISTED PT TO CHAIR, WHEELS LOCKED AND CHAIR ALARM SET. PTS FATHER REQUESTED ENSURE. ENSURE GIVEN. NO FURTHER NEEDS AT THIS TIME. CALL LIGHT WITHIN REACH.
--- NOTE | 2022-02-20 16:19 | NUR ---
PT RESTLESS, ASSISTED FROM CHAIR TO BED. BED ALARM IN PLACE. FATHER AT BEDSIDE.
--- NOTE | 2022-02-20 18:00 | PATH ---
[facility] [address] [place], [place] [address] Signed SPECIMEN(S): A FOREIGN BODY, SMALL BOWEL SPECIMEN SOURCE: A. FOREIGN BODY, SMALL BOWEL CLINICAL HISTORY: Small bowel obstruction FINAL PATHOLOGIC DIAGNOSIS: Gross Diagnosis: - Foreign body, small bowel, removal: - 4.8 x 2.8 x 2.2 cm portion of soft orozco-yellow material grossly identified. COMMENT: The exact nature of the material removed cannot be determined without histologic examination. SDL:[id number]:[id number] MICROSCOPIC EXAMINATION: Histologic sections of all submitted blocks are examined by light microscopy. These findings, together with the gross examination, support the pathologic diagnosis. GROSS DESCRIPTION: The specimen, labeled "Audra" and "foreign body, small bowel" is received fresh and consists of a 4.8 x 2.8 x 2.2 cm ovoid partially disrupted portion of glistening soft orozco-yellow material. No sections are submitted. The specimens is for gross examination only. SUELLENP (under the direct supervision of a pathologist) The Gross Description was prepared using a voice recognition system. The report was reviewed for accuracy; however, sound-alike word errors, addition and/or deletions may occur. If there is any question about this report, please contact Client Services. PERFORMING LABORATORY: The technical component was performed by [employer], [address] [place] [id number] (CLIA# [id number]). Professional interpretation was performed by [facility] - [facility], [address] [place] [id number] (CLIA#: [id number]). PATIENT NAME: CANDIDA WILLIS PATHOLOGY DATE OF : [birth year] REPORT #: [id number] PHYSICIAN: [facility] PCP: HARESH JO MD REPORT IS CONFIDENTIAL AND NOT TO BE RELEASED WITHOUT AUTHORIZATION [address] [place] [address] Signed Diagnostician: April Land MD Pathologist Electronically Signed 02/20/2022 Copies: ~ PATIENT NAME: CANDIDA WILLIS PATHOLOGY DATE OF : [birth year] REPORT #: [id number] PHYSICIAN: [facility] PATH[facility] PCP: HARESH JO MD REPORT IS CONFIDENTIAL AND NOT TO BE RELEASED WITHOUT AUTHORIZATION
--- NOTE | 2022-02-20 18:19 | NUR ---
PT RESTING IN BED, LISTENING TO MUSIC. ATE 100% OF MASHED POTATOES. FATHER AT BEDSIDE, DENIES NEEDS AT THIS TIME.
--- NOTE | 2022-02-20 18:22 | NUR ---
PT WAS VERY ACTIVE TODAY, TOOK MANY WALKS IN GRACE, HAD SHOWER AND WAS FREQUENTLY RESTLESS IN CHAIR AND BED. PT ADVANCED TO FULL LIQUID DIET, TOLERATING WELL BUT APPETITE SMALLER THAN USUAL. PT ON ROOM AIR, LUNG SOUNDS CLEAR. 1MG IV DILAUDID GIVEN ONCE. MIDLINE INCISION WITH CRISTIANA IN PLACES, EDGES WELL APPROXIMATED, WITHOUT REDNESS OR DRAINAGE, DRESSING CHANGED AFTER SHOWER.
--- NOTE | 2022-02-20 19:15 | NUR ---
report from cody guevara, pt with iv fusing, family in room, ted hamilton on surgical area.
--- NOTE | 2022-02-20 20:26 | NUR ---
pt inc of urine, changed and leonel care done, iv dc on left arm - checked by dry charge process attendant, leaking - enc fluids - lopez ensure and sips of diet sprite given. will notify dr for further orders - po med given. father in room, bed alarm on. hob up for fluids.
--- NOTE | 2022-02-20 22:15 | NUR ---
dr brumfield notified of po intake and iv left arm infilterated. new orders ok to leave out - enc. fluids po.
--- NOTE | 2022-02-20 23:11 | NUR ---
pt was able to intake all of the miralax mixed with ensure juice - did well with spoon feeding with ice chips like a slushy. father assisted to help pt intake with hob up to prevent aspiration.
--- NOTE | 2022-02-21 02:00 | NUR ---
pt restless, rn changed pt attends wet - leonel care done, skin intact - dad in room. pt repositioned by 2 rn, bed alarm on with call light in reach.
--- NOTE | 2022-02-21 04:08 | NUR ---
attends changed, lg inc. urine, leonel care done., pt repositiioned- bed alarm on and dad in room. no changes to abd. binder on.
--- NOTE | 2022-02-21 05:00 | NUR ---
pt inc of urine- full linen change. pt amb with rn to bathroom to toilet - pt did not want to sit long. amb to bed, leonel care done - skin intact - sat pt in wheelchair and wheeled her around in pete for change. pt smiles, and hugs. pt is trying to get out of chair - restless- with smile - seems board with hospital stay and bed. has her stuffed animal at side. dad is with pt. returned back to bed with alarm on, pt declined oral intake at this time. happily restless. abd wnl - binder on.
--- NOTE | 2022-02-21 06:20 | NUR ---
in room to round with Dr. Cortez - pt dc home today later when mom is available for transport. midline inc. with rosario well approximated and wnl. abd binder on. new orders for bowel care. dad at bedside.
--- NOTE | 2022-02-21 06:40 | NUR ---
pt given po ducolox in maeve. pudding with hob up. rn assist to feed. pt seemed to like pudding.
--- NOTE | 2022-02-21 07:40 | NUR ---
PT AND FAMILY READY FOR DISCHARGE. PT RESTLESS AND TRYING TO CLIMB OUT OF CHAIR. PT SMILING AND COOING. FAMILY STATES THEY ARE READY TO GO HOME. VITAL SIGNS STABLE. DISCHARGE INSTRUCTIONS REVIEWED WITH PT AND FAMILY. FAMILY VERBALIZES UNDERSTANDING OF INSTRUCTIONS, MEDICATION, FOLLOW UP, ACTIVITY RESTRICTIONS, USE OF ABDOMINAL BINDER AND INFECTION PREVENTION. PT WHEELED FROM MED/SURG TO HER STEP FATHERS CAR. NO ADDITONAL REQUESTS OR CONCERNS.
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
== END 2022-02-21 07:38 | disposition home or self-care (01) | DRG 346 ==
LOC: ED 16:18 → MS 22:19
PROVIDERS: ADMIT Colon & Rectal Surgery; ATTEND Colon & Rectal Surgery
PROC: 3E0T3BZ Introduction of Anesthetic Agent into Peripheral Nerves and Plexi, Percutaneous Approach (ICD-10-PCS; principal; 2022-02-14)
PROC: 0DC80ZZ Extirpation of Matter from Small Intestine, Open Approach (ICD-10-PCS; 2022-02-14)
DX: T18.3XXA Foreign body in small intestine, initial encounter (principal); I48.91 Unspecified atrial fibrillation; K59.00 Constipation, unspecified; E86.0 Dehydration; Z20.822 Contact with and (suspected) exposure to COVID-19; Z98.890 Other specified postprocedural states; Z79.899 Other long term (current) drug therapy; Z87.81 Personal history of (healed) traumatic fracture; Z87.820 Personal history of traumatic brain injury; X58.XXXA Exposure to other specified factors, initial encounter
CPT/HCPCS: 00170; 36415; 71260; 74019; 74177; 76942; 80048; 80053; 81001; 83690; 83735; 84100; 84702; 85025; 87502; 88300; 93005; 93010; 94762; 94799; 96361; 99285-25; C9113; C9803; J0131; J0330; J0696; J1100; J1170; J1630; J1650; J1885; J2001; J2250; J2405; J2550; J2704; J2795; J3010; J3360; J3475; J3486; J7030; J7121; Q9967; U0003

== ENCOUNTER 2022-02-23 14:04 | Emergency (ER) | payer OTHER ==
[~2022-02-23] VITALS: Ht 165.1 cm; Wt 103.2 kg
[~2022-02-23 14:04] MED LIST changes: +ARIPIPRAZOLE10 MG PO
--- OUTSIDE RECORDS SUMMARY | 2022-02-23 14:06 | XMS ---
PreManage Notification: CANDIDA WILLIS Security Advanced Manager Events No recent Security Events currently on file CRITERIA MET - [facility] - Has Care Guidelines - [facility] - 2 Visits in 30 Days - PDMP CARE PROVIDERS HARESH MARADIAGA Family [facility] 07/02/2021-Current PHONE: Unknown SANDRO RAMIREZ Internal Medicine: Pulmonary Disease 05/10/2019-Current PHONE: Unknown Wolf has no Care Guidelines for this patient. Care History Medical/Surgical 07/03/2021 [facility] Patient is nonverbal, mother spoke to Dr. Maradiaga on 07/01/2021 advising she took pt to ER for constipation. No follow up scheduled at this time. 05/10/2019 [facility] - Patient is currently established with [facility]. If patient is seen in the ED during business hours. Please contact CHWs at [facility]. Care Recommendation: This patient has [...] providing care. [place] VISIT COUNT (12 MO.) 3 MENDOZA Garzon TOTAL 3 NOTE: Visits indicate total known visits. ED/UCC VISIT TRACKING (12 MO.) 02/23/2022 14:04 [facility] [place] TYPE: Emergency COMPLAINT: - WEAK 02/13/2022 16:18 [facility] [place] TYPE: Emergency COMPLAINT: - SWALLOWING PROBLEM 06/29/2021 10:55 [facility] [place] TYPE: Emergency COMPLAINT: - ABD PAIN DIAGNOSES: - Constipation, unspecified - Other group home (current) drug therapy INPATIENT VISIT TRACKING (12 MO.) 02/13/2022 22:19 [facility] TYPE: Medical Surgical COMPLAINT: - SMALL BOWEL OBSTRUCTION [email or web address]
== END 2022-02-23 20:53 | disposition home or self-care (01) ==
LOC: ED 14:04
DX: F91.9 Conduct disorder, unspecified (principal); Z98.890 Other specified postprocedural states
CPT/HCPCS: 36415; 70450; 71045; 74177; 80053; 81001; 85025; 96361; 99284-25; A9270; J7030; Q9967

== ENCOUNTER 2022-03-07 17:12 | Emergency (ER) | payer OTHER ==
[~2022-03-07] VITALS: Ht 165.1 cm; Wt 103.0 kg
--- OUTSIDE RECORDS SUMMARY | 2022-03-07 20:32 | XMS ---
PreManage Notification: CANDIDA WILLIS Security Utilities And Maintenance Supervisor Events No recent Security Events currently on file CRITERIA MET - PDMP CARE PROVIDERS HARESH MARADIAGA Family [facility] 07/02/2021-Current PHONE: Unknown SANDRO RAMIREZ Internal Medicine: Pulmonary Disease 05/10/2019-Current PHONE: Unknown Wolf has no Care Guidelines for this patient. Care History Medical/Surgical 07/03/2021 [facility] Patient is nonverbal, mother spoke to Dr. Maradiaga on 07/01/2021 advising she took pt to ER for constipation. No follow up scheduled at this time. 05/10/2019 [facility] - Patient is currently established with [facility]. If patient is seen in the ED during business hours. Please contact CHWs at [facility]. Care Recommendation: This patient has had 5 or more Emergency Department visits in the last 12 months.\T\nbsp; Patient requires education on the scope and purpose of the ED as an acute care provider not a Primary Care Provider and should not be utilized for chronic conditions.\T\nbsp; These are guidelines and the provider should exercise clinical judgment when providing care. Simon VISIT COUNT (12 MO.) 5 MENDOZA Garzon TOTAL 5 NOTE: Visits indicate total known visits. ED/UCC VISIT TRACKING (12 MO.) 03/07/2022 17:12 [facility] TYPE: Emergency COMPLAINT: - DIFF BREATHING 03/01/2022 00:00 [facility] [place] TYPE: Emergency COMPLAINT: - STAPLE REMOVAL 02/23/2022 14:04 [facility] [place] TYPE: Emergency COMPLAINT: - WEAK DIAGNOSES: - Other specified postprocedural states - Conduct disorder, unspecified 02/13/2022 16:18 [facility] [place] TYPE: Emergency COMPLAINT: - SWALLOWING PROBLEM 06/29/2021 10:55 [facility] [place] TYPE: Emergency COMPLAINT: - ABD PAIN DIAGNOSES: - Constipation, unspecified - Other custodial (current) drug therapy INPATIENT VISIT TRACKING (12 MO.) 02/13/2022 22:[address] [facility] [place] TYPE: Medical Surgical COMPLAINT: - SMALL BOWEL OBSTRUCTION DIAGNOSES: - Personal history of (healed) traumatic fracture - Contact with and (suspected) exposure to COVID-19 - Unspecified intestinal obstruction, unspecified as to partial versus complete obstruction - Unspecified atrial fibrillation - Dehydration - Contact with and (suspected) exposure to COVID-19 - Unspecified atrial fibrillation - Constipation, unspecified - Foreign body in small intestine, initial encounter - Constipation, unspecified - Personal history of (healed) traumatic fracture - Dehydration - Other specified postprocedural states - Personal history of traumatic brain injury - Personal history of traumatic brain injury - Other specified postprocedural states - Other custodial (current) drug therapy - Exposure to other specified factors, initial encounter - Other middle or intermediate school principal (current) drug therapy [email or web address]
[2022-03-07] MEDS ORDERED: MIRALAX17 GM PO (21:11)
== END 2022-03-07 21:48 | disposition home or self-care (01) ==
LOC: ED 17:12
DX: R53.83 Other fatigue (principal); K59.00 Constipation, unspecified; Z79.899 Other long term (current) drug therapy; Z20.822 Contact with and (suspected) exposure to COVID-19
CPT/HCPCS: 36415; 71045; 74018; 80053; 83880; 85025; 87502; 99285-25; C9803; U0003

== ENCOUNTER 2022-11-29 07:00 | Day surgery (SDC) | payer OTHER ==
--- NOTE | 2022-11-28 10:01 | NUR ---
PHONE CALL, NO ANSWER, LEFT MESSAGE TO CALL SOFTWARE ENGINEER SALES.
[~2022-11-29] VITALS: Ht 165.1 cm; Wt 93.2 kg
[~2022-11-29 07:00] MED LIST changes: +DIAZEPAM10 MG PO; +FLONASE ALLERG9.9 ML; +MIRALAX17 GM PO; +SENNA8.6 MG PO; +WELLBUTRIN XL150 MG PO
[2022-11-29 07:16] VITALS: BP 112/67
[2022-11-29 11:39] VITALS: BP 124/75
--- NOTE | 2022-11-29 11:52 | NUR ---
LE 1134 PATIENT BACK TO TREATMENT ROOM. REPORT RECIEVED FROM CA FLORES. PATIENT AWAKE AND ORIENTED. BREATHING EQUAL AND UNLABORED. OXYGEN SATURATIONS ABOVE 90% ON ROOM AIR. PATIENT DOES NOT APPEAR TO BE IN ANY PAIN. NO SIGNS OF BLEEDING AT THIS TIME. LE 1140 PATIENT DRINKING APPLE JUICE AND EATING JELLO. PATIENT CROWN FALLEN OUT AFTER PATIENT PULLED IT. LE [address]7 DR. NUNEZ NOTIFIED. PATIENT WILL CALL OFFICE FRIDAY FOR REPLACEMENT. CALL LIGHT WITHIN REACH NO FUTHER NEEDS. NO QUESTIONS AT THIS TIME.
--- NOTE | 2022-11-29 11:53 | NUR ---
11/29/22 1153 Sheets,Emily 1111 PT ARRIVED TO PACU ON 6L VIA MASK, PT STARTS MOVING AND GRABBING AT HER FACE. VSS. 1115 PT PULLED OFF O2 MASK. PT OPENS HER EYES AND IS LOOING AROUND ROOM. 1120 MD AT BEDSIDE PT PULLING AT IV SITE, PT PULLED THREE LEAD CORD OFF. RESP EVEN AND UNLABORED BUT SLIGHTLY SHALLOW. 1125 DS RN AT BEDSIDE, HOB INCREASED DUE TO 02 SAT 88%. PT PULLED OFF O2 FINGER PROBE. RN ENCOURAGES DEEP BREATHING, PT DOES NOT FOLLOW COMMANDS. 1134 O2 SAT 91% AND PT PULLING IV SITE, IV REMOVED WITH DS RN AT BEDSIDE. PT RETUREND TO DS WITH MOTHER AT BEDSIDE. PT SLIGHTLY DROWSY.
[2022-11-29 12:27] VITALS: BP 125/71
--- NOTE | 2022-11-29 12:40 | NUR ---
LE 1235 PATIENT HAS MET DISCHARGE CRITERIA. PATIENT DRESSED SELF WITH THE HELP THIS RN AND MOTHER. PATIENT AND MOTHER GIVEN DISCHARGE INSTRUCTIONS. NO QUESTIONS AT THIS TIME. PATIENT WHEELED OUT OF FACILITY NO FUTHER NEEDS. NO QUESTIONS AT THIS TIME.
== END 2022-11-29 12:35 | disposition home or self-care (01) ==
LOC: DS 07:00 → OPS 07:00 → DS 09:00 → OPS 09:00
PROVIDERS: ATTEND Dentist General Practice
DX: K02.9 Dental caries, unspecified (principal); F50.81 Binge eating disorder; R62.50 Unspecified lack of expected normal physiological development in childhood; E03.9 Hypothyroidism, unspecified; S06.9X9S Unspecified intracranial injury with loss of consciousness of unspecified duration, sequela; X58.XXXS Exposure to other specified factors, sequela
CPT/HCPCS: 36415; 71045; 80048; 84703; 85025; J0131; J0330; J1100; J1885; J2001; J2405; J2704; J3010; J3490; J7121

== ENCOUNTER 2023-12-25 21:35 | Emergency (ER) | payer OTHER ==
[~2023-12-25] VITALS: Ht 165.1 cm; Wt 104.0 kg
[2023-12-25] MEDS ORDERED: levETIRAcetam 500 MG/5 ML VIAL IV ONE (21:45)
[2023-12-25] MEDS ORDERED: LORazepam 2 MG/ML VIAL IV ONE (21:45)
[2023-12-25 22:07] LABS: HEMATOCRIT 37.7 % (35.0-50.0); HEMOGLOBIN 12.5 g/dL (12.0-18.0); MCH 27.4 (27-36); MCHC 33.3 g/dl (30-36); MCV 82.5 fl (81-99); PLATELET COUNT 451 K/uL (140-440); RBC 4.57 M/ul (4.3-5.7); RDW 13.7 (10.5-15.0)
[2023-12-25 22:20] LABS: BANDS, MANUAL DIFF 5; BASOPHILS, MANUAL DIFF 1; EOSINOPHILS, MANUAL DIFF 3; LYMPHOCYTES, MANUAL DIFF 39; MONOCYTES, MANUAL DIFF 3; NEUTROPHILS, MANUAL DIFF 49
[2023-12-25 22:22] LABS: ALBUMIN 3.7 g/dL (3.4-5.0); ALBUMIN/GLOBULIN RATIO 0.82 (1.1-2.4); ANION GAP 11.9 (7-21); BILIRUBIN, TOTAL 0.3 ng/dL (0.2-1.0); BUN/CREATININE RATIO 15.58 (6.0-28.6); CALCIUM 9.2 mg/dL (8.5-10.1); CREATININE, SERUM 0.77 mg/dL (0.55-1.02); POTASSIUM 3.9 mmol/L (3.5-5.1); PROTEIN, TOTAL 8.2 g/dL (6.4-8.2)
[2023-12-25] MEDS ORDERED: KEPPRA500 MG PO (22:35)
[2023-12-25 23:07] VITALS: BP 132/70
== END 2023-12-25 23:11 | disposition home or self-care (01) ==
LOC: ED 21:35
PROVIDERS: Family Medicine
DX: R56.9 Unspecified convulsions (principal); Z87.820 Personal history of traumatic brain injury; Z88.8 Allergy status to other drugs, medicaments and biological substances; Z79.899 Other long term (current) drug therapy
CPT/HCPCS: 36415; 80053; 83735; 84703; 85025; 96374; 96375; 99285; J1953; J2060

== ENCOUNTER 2024-11-05 07:00 | Day surgery (SDC) | payer OTHER ==
[~2024-11-05] VITALS: Ht 165.1 cm; Wt 92.7 kg
[~2024-11-05 07:00] MED LIST changes: +BUPROPION XL150 MG PO; +IBLOOD GLUCOSE TEST STRIP 1 EA TEST VI PRN; +KEPPRA500 MG PO; +LACTATED RINGER'S 1,000 ML IV SCH; +LIDOCAINE HCL 1% 5 ML SDV INJ ONE; +PEPCID40 MG PO; +PROZAC10 MG PO; +ZEPBOUND10 MG/0.5 SQ
[2024-11-05] MEDS ORDERED: FLUOXETINE HCL10 MG PO (07:26)
[2024-11-05] MEDS ORDERED: MIDAZOLAM HCL 10 MG/5 ML SYR PO ONE (07:30)
[2024-11-05 07:32] VITALS: BP 115/72
[2024-11-05 08:15] LABS: BASOPHILS 0.7 % (0-2); EOSINOPHILS 1.8 % (0-6); HEMATOCRIT 37.1 % (35.0-50.0); HEMOGLOBIN 12.5 g/dL (12.0-18.0); LYMPHOCYTES 23.8 % (24-44); MCH 27.7 (27-36); MCHC 33.7 g/dl (30-36); MONOCYTES 8.3 % (0-12); NEUTROPHILS 65.4 % (39-80); PLATELET COUNT 319 K/uL (140-440); RBC 4.53 M/ul (4.3-5.7); RDW 13.2 (10.5-15.0)
[2024-11-05 08:25] LABS: ANION GAP 9.9 (7-21); BUN/CREATININE RATIO 21.51 (6.0-28.6); CALCIUM 8.8 mg/dL (8.5-10.1); CREATININE, SERUM 0.79 mg/dL (0.55-1.02); POTASSIUM 3.9 mmol/L (3.5-5.1)
--- NOTE | 2024-11-05 08:25 | NUR ---
0733 VERSED GIVEN ORALLY TO PT SEE EMAR FOR DETAILS DUE TO AGITATION UPON ATTEMPTING ATTEMPTING IV. 0826 ATTEMPTED TO CALL BACK TO OR TO SPEAK WITH MANJULA ABOUT GETTING SOMETHING TO KEEP PATIENT CALM. NOW THAT IV IS IN PLACE, PT IS CONSTANTLY TRYING TO PULL OUT IV. PT MOTHER IS ATTEMPTING TO HOLD PT HANDS DOWN TO KEEP FROM PULLING IV OUT. DR GARCÍA IN OR 4, MANJULA FOREPART REDUCER WILL CALL RN BACK.
[2024-11-05] MEDS ORDERED: MIDAZOLAM HCL 2 MG/2 ML VIAL ONE (08:33)
--- NOTE | 2024-11-05 09:54 | NUR ---
0850 VERSED GIVEN IV, SEE ANESTHSIA BLUE SHEET. 0915 PT MUCH MORE COMFORTABLE AND SLEEPING NOW. MOM AT BEDSIDE. CHEST FALL EQUAL AND UNLABORED. 0930 OXYGEN SAT CHECKED 94% ON RA. PT BREATHING EQUAL AND UNLABORED. PT RESTING IN BED WITH SIDE RAILS UP. PT MOM AT BEDSIDE.
[2024-11-05] MEDS ORDERED: DEXAMETHASONE SOD PHOS 4 MG/ML VIAL ONE (10:16)
[2024-11-05] MEDS ORDERED: fentaNYL citrate 100 MCG/2 ML VIAL ONE (10:16)
[2024-11-05] MEDS ORDERED: ROCURONIUM BROMIDE 50 MG/5 ML SYR ONE (10:16)
[2024-11-05] MEDS ORDERED: SUGAMMADEX SODIUM 200 MG/2 ML ML ONE (10:16)
[2024-11-05] MEDS ORDERED: SUCCINYLCHOLINE IN 0.9% NACL 200 MG/10 ML SYRINGE ONE (10:16)
[2024-11-05] MEDS ORDERED: propofoL 200 MG/20 ML VIAL ONE (10:16)
[2024-11-05] MEDS ORDERED: ondansetron HCL 4 MG/2 ML VIAL ONE (10:16)
[2024-11-05] MEDS ORDERED: LIDOCAINE HCL 2% 5 ML SDV ONE (10:16)
--- NOTE | 2024-11-05 10:26 | NUR ---
1015 WENT INTO ROOM AND SPOKE WITH PT. PT THEN WAS AWAKE AND PULLED OUT OWN IV. 1020 NEW IV PLACED INTO RIGHT FOREARM BY CARLYLE Hassan RN.
[2024-11-05] MEDS ORDERED: LACTATED RINGER'S 1,000 ML IV ONE (11:19)
[2024-11-05 11:56] VITALS: BP 136/99
--- NOTE | 2024-11-05 12:03 | NUR ---
0477 PT ARRIVED TO DAY SURGERY VIA STREACHER. REPORT TAKEN FROM SAMMY Fam RN. PT HAS ALREADY HAD IV REMOVED DUE TO PT TRYING TO PULL IV OUT IN PACU. PT DROWSEY BUT BACK TO BASELINE. PT MOM IN ROOM. PT SEEMS COMFORTABLE LYING IN BED, PT DOES NOT SEEM FIDGITY OR IRRITATES AT THIS TIME. VITALS TAKEN. PUDDING AND JUICE AT BEDSIDE. CALL LIGHT WITHIN REACH. BED IS LOW AND LOCKED, RAILS UP ON BOTH SIDE.
[2024-11-05 12:09] VITALS: BP 130/84
--- NOTE | 2024-11-05 12:16 | NUR ---
11/05/24 1216 [place] 1132- PT PRESENTS TO PACU, SEMI TSAI POSITION. OPA IN PLACE, O2 AT 6L PER MASK, BREATHING EVEN AND NON LABORED. LR INFUSING TO RFA IV. ABD SOFT, NON DISTENDED. ALL MONITORS IN PLACE. 1135- PT PULLED O2 MASK OFF, OPA REMOVED. PT KEEPS EYES CLOSED BUT STARTING MOVE ALL EXTREMITIES AND PULL AT WIRES. 1140- PT PULLED CARDIAC LEADS OFF AT THIS TIME, KEEPS EYES CLOSED, BUT VERY REACTIVE. 1145- IV SALINE LOCKED, PT TRYING TO PULL AT IV, D/C'S AT THIS TIME, TIP INTACT, DRESSING APPLIED AND PRESSURE HELD. PT IS NOT COOPERATIVE WITH TAKING VITAL SIGNS AND REQUIRES ARM TO BE HELD IN ORDER TO OBTAIN LAST SET. 1150- ALL MONITORS REMOVED, PT PULLED DRESSING OFF IV SITE, NO BLEEDING NOTED. PT OPENS EYES, NON VERBAL. 1155- PT BACK TO ROOM 11, MOM AT BEDSIDE, ASSISTED WITH VITAL SIGNS, PT CONTINUES TO PULL AT MONITORS AND BRACELETS, ALL REMOVED. REPORT TO GUNJAN PENALOZA AT BEDSIDE, CARE OF PT TURNED OVER AT THIS TIME.
--- NOTE | 2024-11-05 12:23 | NUR ---
1220 PT DISCHARGE INFORMATION GONE OVER WITH PT AND PT MOM. NO QUESTIONS AT THIS TIME.
--- NOTE | 2024-11-05 12:53 | NUR ---
1245 PT MOM HAD GO PT DRESSED. PT BECAME AGITATED RN ATTEMPTED TO TAKE VITALS. PT BREATHING EQUAL AND UNLABORED, SKIN IS PINK AND WARM. UNABLE TO OBTAIN VITALS PT BEGAN TO CLIMB OUT OF BED AND ATTEMPT TO LEAVE. 1250 PT DISCHARGED FROM DAY SURGERY VIA WHEELCHAIR TO THE FRONT OF THE HOSPITAL TO PT'S MOM'S CAR. PT HAS DISCHARGE PAPERWORK IN HAND.
[2024-11-05] MEDS ORDERED: SEVOFLURANE 250 ML BTL INH ONE (15:44)
== END 2024-11-05 12:50 | disposition home or self-care (01) ==
LOC: DS 07:00 → OPS 07:00 → DS 09:15 → OPS 12:50
PROVIDERS: ATTEND Dentist General Practice
PROC: 0CDWXZ2 Extraction of Upper Tooth, All, External Approach (ICD-10-PCS; 2024-11-05)
PROC: 0CDXXZ2 Extraction of Lower Tooth, All, External Approach (ICD-10-PCS; principal; 2024-11-05 09:15)
DX: K02.9 Dental caries, unspecified (principal); E66.9 Obesity, unspecified; G40.909 Epilepsy, unspecified, not intractable, without status epilepticus; Z79.899 Other long term (current) drug therapy; Z68.34 Body mass index [BMI] 34.0-34.9, adult
CPT/HCPCS: 00170; 36415; 80048; 84703; 85025; J0330; J1100; J2003; J2250; J2405; J2704; J3010; J3490; J7121